=== PATIENT | female | born 1940 | race Caucasian/White ===

== ENCOUNTER → 2022-10-09 13:16 | Outpatient (CLI) | payer OTHER, SELFPAY ==
--- NOTE | 2022-10-09 14:44 | DI.MRI.S_ITS ---
PROCEDURE: MR LUMBAR SPINE WO CON INDICATIONS: spinal stenosis, lumbar region TECHNIQUE: Noncontrast sagittal T1 spin echo and T2 fast echo, sagittal STIR, and T2 fast spin echo through the lumbar spine. In cases with scoliosis, additional coronal T2 fast spin echo may be performed. COMPARISON: [facility] Outside Film, CT, CT LUMBAR SPINE WITHOUT CONTRAST, 07/03/2022, 17:10. FINDINGS: Image quality: Excellent. Alignment and Curvature: Mild retrolisthesis of L1 on L2 and of L2 on L3 and of L4 on L5. Bone Marrow: Marrow is of normal overall signal. No acute vertebral body compression fractures. Old moderate L1 compression. Spinal Cord: Conus medullaris terminates at the L1-L2 level. Visualized cord demonstrates normal signal and size. Paraspinous Soft Tissues: No paravertebral masses. T12-L1: Disc bulge. Facet hypertrophy. No canal stenosis or foraminal stenosis. L1-L2: Posterior disc post osteophyte. Facet hypertrophy. Mild canal stenosis. Moderate bilateral foraminal stenosis. L2-L3: Posterior disc post osteophyte. Facet hypertrophy. Moderate canal stenosis. Pvhf-yl-dyurtfbj bilateral foraminal stenosis. L3-L4: At the level of the disc space, there is large diffuse disc bulge and facet and ligament hypertrophy with severe canal stenosis. Just inferior to the disc space is a large extruded left paracentral disc fragment, measuring approximately 1.0 x 1.8 x 1.3 cm resulting in high-grade stenosis at the level of upper L4. There is moderate to severe right foraminal narrowing and severe left foraminal narrowing with bilateral foraminal L3 nerve root impingement. L4-L5: Posterior disc post osteophyte. Facet hypertrophy. Htxm-jv-euwsgfok canal stenosis. Severe bilateral foraminal stenosis with bilateral foraminal L4 nerve root impingement. L5-S1: Bilateral facet hypertrophy. No canal stenosis. Moderate to severe bilateral foraminal narrowing with a degree of bilateral foraminal L5 nerve root impingement. IMPRESSION: 1. The most significant findings are at L3-L4. At the level of did disc, there is severe canal stenosis. Just below the disc is a large extruded disc fragment which results in high-grade stenosis immediately below the disc level. There is also bilateral foraminal L3 nerve root impingement. 2. Multilevel facet arthropathy. 3. Canal stenosis is mild at L1-L2, moderate at L2-L3, and acvy-ow-eaymdcxd at L4-L5. 4. Significant multilevel foraminal narrowing as described above. Findings include moderate to severe right foraminal narrowing and severe left foraminal narrowing at L3-L4, bilateral severe foraminal narrowing at L4-L5, and bilateral moderate to severe foraminal narrowing at L5-S1. Dictated by: Duglas Dave M.D. on 10/10/2022 at 12:54 Approved by: Duglas Dave M.D. on 10/10/2022 at 13:01
== END ==
PROVIDERS: Referring Provider Physical Medicine & Rehabilitation; Visit Provider Physical Medicine & Rehabilitation
DX: M48.062 Spinal stenosis, lumbar region with neurogenic claudication (principal); M48.07 Spinal stenosis, lumbosacral region; M47.816 Spondylosis without myelopathy or radiculopathy, lumbar region; M47.817 Spondylosis without myelopathy or radiculopathy, lumbosacral region
CPT/HCPCS: 72148

== ENCOUNTER → 2022-11-23 10:12 | Outpatient (CLI) | payer OTHER, SELFPAY ==
[2022-11-23 12:09] LABS: Add Manual Diff / Slide Review NO; Basophils Absolute Auto 0 /uL (0-100); Basophils Percent Auto 0.5 % (0-2); Eosinophils Absolute Auto 0 /uL (0-450); Eosinophils Percent Auto 0.1 % (2-4); Hematocrit 37.9 % (36-46); Lymphocytes Absolute Auto 1900 /uL (1100-4500); Mean Corpuscular HGB Conc 34.2 % (30-36); Mean Corpuscular Hemoglobin 32.2 PG (26-34); Mean Corpuscular Volume 93.9 fL (80-100); Monocytes Absolute Auto 500 /uL (0-900); Monocytes Percent Auto 6.7 % (3-14); Neutrophils Absolute Auto 4900 /uL (1500-7000); Neutrophils Percent Auto 66.7 % (50-75); Platelet Count 239 X10^3/uL (150-400); Red Blood Cell Count 4.03 X10^6/uL (4.0-5.2); White Blood Cell Count 7.4 X10^3/uL (4.5-11.0)
[2022-11-23 12:16] LABS: BUN Creatinine Ratio 15.6 (6-22); Blood Urea Nitrogen 12 mg/dL (7-17); Calcium 9.1 mg/dL (8.4-10.2); Carbon Dioxide 31 mmol/L (22-32); Chloride 105 mmol/L (98-107); Estimated Glomerular Filt Rate > 60 mL/min (>60); Glucose 84 mg/dL (80-110); HEMOLYSIS < 15 (0-50); Potassium 3.8 mmol/L (3.4-5.1); Sodium 142 mmol/L (137-145)
[2022-11-24 02:57] LABS: Labcorp Hemoglobin (Hb) A1c 5.5 % (4.8-5.6)
== END ==
PROVIDERS: PCP Physician Assistant; Referring Provider Orthopaedic Surgery Orthopaedic Surgery of the Spine; Visit Provider Orthopaedic Surgery Orthopaedic Surgery of the Spine
DX: Z01.818 Encounter for other preprocedural examination (principal); R73.9 Hyperglycemia, unspecified; Z01.812 Encounter for preprocedural laboratory examination
CPT/HCPCS: 36415; 80048; 83036; 85025; 93005

== ENCOUNTER → 2022-11-23 11:10 | Outpatient (CLI) | payer OTHER, MEDICAID, SELFPAY ==
--- NOTE | 2022-11-23 | DI.CT.S_ITS ---
PROCEDURE: CT LUMBAR SPINE WO CON INDICATIONS: Spinal stenosis, lumbar region with neurogenic cla TECHNIQUE: Noncontrast 3 mm thick sections acquired from the T12 level to the sacrum. Sagittal and coronal reformats were constructed. For radiation dose reduction, the following was used: automated exposure control. COMPARISON: [facility] Outside Film, CT, CT LUMBAR SPINE WITHOUT CONTRAST, 07/03/2022, 17:10 (images only, no report). [facility], MR, MR LUMBAR SPINE WO CON, 10/09/2022, 14:08. [facility], RF, LUMBAR SPINE INTERIAMINAR, 08/30/2022, 9:48. FINDINGS: Image quality: This examination is limited by involuntary motion artifact. Bones: No acute vertebral body compression fractures. No suspicious lytic or blastic bony lesions. No pars defects. There is focal kyphosis seen at the L1-L2 level. Mild retrolisthesis can be seen at L1-L2, L2-L3, and L3-L4. Minimal retrolisthesis can be seen at L4-L5. T12-L1: The disc height is relatively well preserved. Mild generalized disc bulge is seen. No neural foraminal narrowing is seen. No significant central canal narrowing. L1-L2: Moderate to severe loss of disc height is seen on the right side. Endplate irregularity and sclerosis can be seen. Partially bridging endplate osteophytes can be seen. Posteriorly projected endplate osteophytes are seen. Moderate disc bulge is seen at this level. There is severe bilateral neural foraminal narrowing. Moderate to severe central canal narrowing is seen. L2-L3: Moderate to severe loss disc height is seen. Endplate irregularity and sclerosis can be seen. Moderate generalized disc bulge is seen. Moderate bilateral neural foraminal narrowing is seen. Moderate central canal narrowing is seen. L3-L4: Moderate to severe loss disc height is seen. Vacuum disc phenomenon is seen at this level. Endplate irregularity and sclerosis can be seen. There is again seen a disc extrusion with inferior migration of the disc material, as seen on series 8 image 31, with the extruded disc material measuring 1.6 cm craniocaudal. Moderate disc bulge is seen. Moderate to severe bilateral neural foraminal narrowing can be seen. There is severe central canal narrowing seen posterior to the L4 vertebral body, as on series 5, image 56. L4-L5: At least moderate loss of disc height is seen. Moderate disc bulge is seen, which is eccentric to the right. Endplate irregularity and sclerosis can be seen. There is moderate to severe right-sided and at least moderate left-sided neural foraminal narrowing. At least moderate central canal narrowing is seen at this level. L5-S1: The disc height is relatively well preserved. Mild disc bulge is seen, with a mild central disc protrusion. Mild to moderate facet hypertrophy is seen. Moderate bilateral neural foraminal narrowing is seen. Soft tissues: No retroperitoneal masses or hematomas. Dense atherosclerotic calcification is noted. Aortic irregularity is seen. There is luminal stenosis seen distally, with 40-50% narrowing seen within the distal aorta. Cholecystectomy clips are seen. IMPRESSION: Multiple levels of lumbar spine degenerative change are seen, with a persistent disc extrusion seen at the L3-L4 level, with the extruded disc material seen posterior to the L4 disc level. Associated severe central canal narrowing is seen. There is dense atherosclerotic calcification, with 40-50% narrowing seen involving the distal aorta. If clinically appropriate, a follow-up dedicated CT angiogram of the aorta could be considered further evaluation. Additional findings: Cholecystectomy clips Dictated by: Samson Hess M.D. on 11/23/2022 at 16:04 Approved by: Samson Hess M.D. on 11/23/2022 at 16:13
== END ==
PROVIDERS: PCP Physician Assistant; Referring Provider Orthopaedic Surgery Orthopaedic Surgery of the Spine; Visit Provider Orthopaedic Surgery Orthopaedic Surgery of the Spine
DX: M48.062 Spinal stenosis, lumbar region with neurogenic claudication (principal); M48.07 Spinal stenosis, lumbosacral region; M47.816 Spondylosis without myelopathy or radiculopathy, lumbar region; M47.817 Spondylosis without myelopathy or radiculopathy, lumbosacral region; M51.26 Other intervertebral disc displacement, lumbar region; I70.0 Atherosclerosis of aorta; Z01.818 Encounter for other preprocedural examination; Z01.812 Encounter for preprocedural laboratory examination; R73.9 Hyperglycemia, unspecified
CPT/HCPCS: 36415; 72131; 80048; 83036; 85025; 93005

== ENCOUNTER 2022-12-02 10:05 | Inpatient (IN) | payer OTHER, MEDICAID, SELFPAY ==
[2022-11-24 13:31] VITALS: BMI 23.1
[2022-12-02] VITALS (14 sets, daily range): BP systolic 115–174; BP diastolic 53–112; PULSE 78–94; RESP 12–20; TEMP 36.1–37; O2SAT 88–99; BMI 23.1
--- NOTE | 2022-12-02 | DI.RAD.S_ITS ---
PROCEDURE: XR LUMBAR SPINE 2-3V INDICATIONS: L3-4 L4-5 TLIF TECHNIQUE: Two views of the lumbar spine were acquired. COMPARISON: None. FINDINGS: Bones: fluoroscopic views of the lumbar spine demonstrating L3-L4 and L4-5 TLIF. The hardware appears intact. IMPRESSION: Fluoroscopic views of the lumbar spine status post L3-L4 and L4-L5 TLIF. Dictated by: Rich Grajeda M.D. on 12/02/2022 at 17:57 Approved by: Rich Grajeda M.D. on 12/02/2022 at 17:58
[2022-12-02] MEDS: ALBUTEROL/IPRATROPIUM 3 ML AMPUL INH ×2 (12:05→17:49)
--- NOTE | 2022-12-02 12:49 | PM.PREOP ---
Pre-operative Note COVID-19 Criteria for continued procedure: Expected advancement of disease process, Possibility delay results in more complex future surgery or treatment, Increased loss of function, Continuing or worsening of significant or severe pain, Deterioration of the patient's condition or overall health and Delay expected to result in less-positive ultimate med/surg outcome Interval Note History & Physical reviewed/Exam performed by Physician: Yes Changes to H&P: No
[2022-12-02] MEDS: LACTATED RINGERS 1,000 ML 42 ML IV ×3 (13:00→18:16)
--- NOTE | 2022-12-02 13:29 | PM.OP.1 ---
Operative Date/Time/Diagnoses Date of procedure: 12/02/22 Time of procedure: 13:45 Pre-op diagnosis: 1. L3-4, L4-5 spinal stenosis with neurogenic claudication 2. L3-4, L4-5 spondylosis with radiculopathy 3. Lumbar scoliosis Post-op diagnosis: same Procedure & Clinicians Procedure: 1. L3-4, L4-5 Postero-lateral and posterior interbody fusion 2. L3-4, L4-5 interbody cage placement. 3. L3-4, L4-5 decompressive laminectomy with bilateral facetecomies 4. L3-4, L4-5 Posterior segmental instrumentation 5. [place] of bone marrow from iliac crest 6. Utilization of microsurgical technique and operating microscope 7. Utilization of robotic assisted navigation Same procedure as scheduled: Yes Indications: Patient has been having chronic back pain and worsening lumbar radiculopathy and symptoms of neurogenic claudication. Patient failed multiple conservative management with worsening pain weakness and numbness in her lower extremity. Patient has been having difficulty performing activity of daily living. After discussing risks benefits of treatment options, patient elected proceed with surgery. Surgeon: Mariza Do Air Pumper: Ady Palmer Click Yes if Unassisted: No Anesthesia Type: General Operative Notes Closure Type: primary Specimen(s): none sent Prosthetic devices, grafts, tissues, transplants, or devices: Globus CREO MIS screws, Rise cages Applied: catheter Procedure in detail: Patient was seen in the preoperative area. Risks and benefits of the surgery was discussed with the patient. Informed consent was obtained from the patient and placed in the chart. Surgical site was marked. Patient was taken to the operative room. General anesthesia was administered. Prophylactic antibiotic was given to the patient less than 30 min before the incision was made. Patient was placed into a prone position on the Alex table. Patient's back was then prepped and draped in the sterile fashion. Time-out was performed at this time. After patient was prepped and draped, patient's PSIS was palpated and marked bilaterally. Small 1 cm incision was made over the PSIS for placement of the reference probes. Two trocar was placed into the PSIS 1 on each side. The reference probe was attached to the trocar of the reference apparatus. At this time the C-arm imaging was used to confirm AP and lateral of L3, L4-L5 vertebrae and merged the C-arm imaging using the [employer] robotic navigation system with the CT of the lumbar spine. After successful merging was completed and confirmed, skin marker was used to aleks out the skin incision using the [employer] robotic arm. Bilateral incision was made at this time. Pre templated trajectory was used and guided using the [employer] robotic navigation system for bilateral L3 L4, L5 pedicle screw placement. This was done by using the robotic arm to guide the high-speed bur to make a cortical entry point. Next a drill was placed also using the robotic arm and guided using the navigation system drilling partially through bilateral L3, L4, L5 pedicles. Next L3, L4, L5 pedicle screws it was pre templated and measured was placed onto the power industrial tractor driver and inserted into the pedicles bilaterally. After all 6 screws were placed C-arm imaging was taken of both AP and lateral to confirm the placement. Excellent placement of the screws were confirmed and a matched precisely with the pre planned screw placement using the navigation system. MARs retractor was inserted using [employer] guidence. Globus MARS retractors was placed inside the incision and docked onto the L3, L4 lamina. Using microsurgical technique and operating microscope, a L3, L4 laminectomy and L3-4, L4-5 facetectomy was performed using a Kerrison rongeur. The laminectomy and facetectomy was performed in order to decompress patient's cauda equina as well as the nerve roots exiting at the L3-4, L4-5 level. Patient was found have severe central stenosis, severe lateral recess and neural foramen stenosis which was fully decompressed after the laminectomy facetectomy. More than 75% of the facets were removed during the process of decompression rendering L3-4, L4-5 level grossly unstable and required a fusion procedure at the same time. The disc space at L3-4, L4-5 was identified, and a total diskectomy was performed at L3-4, L4-5 level. The endplates were decorticated using a rasp and shaver. The total diskectomy and decortication was performed at L3-4, L4-5 level in order to to accomplish a L3-4, L4-5 fusion. The local bone from the laminectomy and facetectomy was saved for local bone grafting. After the total diskectomy and decortication was completed, Trifecta bone graft material was combined with local bone that was harvested earlier. At this time, a separate skin is incision was made over the iliac crest. A Jamshidi needle was inserted into the iliac crest through a separate skin incision. 5 cc of bone marrow aspiration was obtained through the separate skin incision using a Jamshidi needle from the iliac crest. The bone marrow aspiration was combined with local bone and the Trifecta bone grafting material. The bone grafting material was placed into the L3-4, L4-5 interbody space along with expandable cages. One cage each was inserted into the L3-4 L4-5 interbody space along with bone graft material. The cage was expanded to its maximum height using the torque limiting screwdriver. The disc preparation as well as the cage insertion were also performed under navigation guidance. After the cage was placed, AP and lateral C-arm imaging was taken to confirm placement of the cage and excellent position was confirmed. Globus MARS retractor was inserted and docked onto the L3-4, L4-5 posterolateral gutter on the right side. Using the power drill, posterior-lateral decortication was performed at L3-4, L4-5 level until bleeding cortical bone was identified. The remaining bone grafting material was placed into the L3-4, L4-5 posterior lateral gutter he order to accomplish posterolateral fusion at the L3-4, L4-5 level. At this time the tulips were attached to the L3, L4-L5 pedicle screw shanks. After measuring the length of the rods, they were inserted into the tulips of the pedicle screws and locked in place using locking caps and torque limiting screwdriver bilaterally. Total 6 caps and 2 titanium rods was used in order to complete the posterior instrumentation construct. After all the hardware was placed, and confirmed with AP and lateral C-arm imaging, the wound was then irrigated with sterile normal saline and packed with Ray-Adriel gauze for 3 min to accomplish hemostasis. After the gauze was removed the deep fascia was closed with #1 Vicryl suture. The subcutaneous layer was closed with 2-0 Vicryl. The skin was closed with skin kaitlynn. Patient tolerated the procedure well. There were no complications. Neuro monitoring system was used to monitor patient's neurologic status throughout entire procedure. There was no disturbance of the neural monitoring signals throughout the case. The Operation could not have been safely performed without compromising the technical result or length of the procedure, without the assistance of a skilled kindergarten assistant. The kindergarten assistant was medically necessary for proper positioning, retraction and manipulation of instruments, proper exposure, surgical preparation, and manipulation of tissue. Complications: none Post-operative Condition: stable Disposition: PACU Plan for aftercare: Admit to inpatient hospital
[2022-12-02] MEDS: CEFAZOLIN 2 GM/100 ML PREMIX 100 ML IV ×2 (14:06→22:01)
--- NOTE | 2022-12-02 14:15 | SUR.OPER ---
Prone on spine table, head in foam head support, padded chest and pelvic supports, gel pad at knees, lower legs supported by pillows; nipples, genitalia and toes free of pressure, arms secured on foam padded arm boards at <90 degrees abduction. Tape over blanket at thigh secured to table.
[2022-12-02] MEDS: BUPIVACAINE 0.25% (PF) 30 ML, EPINEPHrine 0.15 MG INJ (14:19)
[2022-12-02] MEDS: BUPIVACAINE LIPOSOME 266 MG/20 ML VIAL INJ (14:19)
[2022-12-02] MEDS: LACTATED RINGERS 1,000 ML 1000 ML IV (15:00)
[2022-12-02] MEDS: HYDROMORPHONE 2 MG INJ IV ×3 (17:38→17:57)
[2022-12-02] MEDS: ONDANSETRON 4 MG/2 ML INJ IV (17:40)
[2022-12-02] MEDS: fentaNYL 100 MCG/2 ML INJ IV ×2 (17:41→17:42)
[2022-12-02] MEDS: hydrOXYzine 50 MG/ML INJ 25 MG IM (17:45)
[2022-12-02] MEDS: LORazepam 2 MG/ML INJ 0.25 MG IV (17:56)
[2022-12-02] MEDS: OXYCODONE IR 5 MG TABLET PO (18:09)
[2022-12-02] MEDS: LACTATED RINGERS 1,000 ML 125 ML IV (18:50)
[2022-12-02] MEDS: GABAPENTIN 300 MG CAPSULE PO (22:00)
[2022-12-02] MEDS: SENNOSIDES 8.6 MG TABLET 17.2 MG PO (22:00)
[2022-12-02] MEDS: PREGABALIN 75 MG CAPSULE PO (22:00)
[2022-12-02] MEDS: DOCUSATE 100 MG CAPSULE PO (22:00)
[2022-12-02] MEDS: HYDROMORPHONE 0.5 MG INJ IV (22:01)
[2022-12-02] MEDS: hydrOXYzine pamoate 25 MG CAPSULE PO (22:01)
[2022-12-03] VITALS (8 sets, daily range): BP systolic 122–144; BP diastolic 43–61; PULSE 68–86; RESP 17–22; TEMP 36.3–36.8; O2SAT 88–96
[2022-12-03] MEDS: ACETAMINOPHEN 325 MG TABLET 650 MG PO ×4 (00:09→23:26)
[2022-12-03] MEDS: OXYCODONE IR 10 MG TABLET PO ×4 (00:10→23:26)
[2022-12-03] MEDS: HYDROMORPHONE 0.5 MG INJ IV (00:50)
--- NOTE | 2022-12-03 04:27 | PC.ADMIT ---
[address] Admission Note: Patient admitted to AC unit from PACU prior to my arrival. A/O x 3-4, cooperative with care. Pain managed by PRN's- (see MAR), ice pack, and repositioning. Dressing to back dry and intact, noted some blood on dressing. CMS intact. Bed in low position, alarm on, and call light within reach. The patient,Onelia Jarvis,82 y/o, was given written information regarding hospital policies, unit procedures and contact persons. Patient's smoking status: Current every day smoker. Vital Signs - 8 hr 12/02/22 22:00 12/02/22 22:00 Temperature 97.0 F L Pulse Rate 79 Respiratory Rate 20 Blood Pressure 120/64 Pulse Oximetry 92 Oxygen Delivery Method Nasal Cannula Oxygen Flow Rate 5
[2022-12-03] MEDS: CEFAZOLIN 2 GM/100 ML PREMIX 100 ML IV (06:01)
[2022-12-03 08:39] LABS: Hematocrit 31.8 % (36-46); Hemoglobin 10.8 g/dL (12.0-16.0)
[2022-12-03] MEDS: PREGABALIN 75 MG CAPSULE PO ×2 (08:57→20:16)
[2022-12-03] MEDS: AMLODIPINE 5 MG TABLET PO (08:57)
[2022-12-03] MEDS: NICOTINE 14 PATCH 14 MG TOP (08:57)
[2022-12-03] MEDS: GABAPENTIN 300 MG CAPSULE PO ×3 (08:57→20:16)
[2022-12-03] MEDS: lisinopriL 10 MG TABLET PO (08:57)
[2022-12-03] MEDS: polyethylene glycoL 3350 17 GM POWD.PACK PO (08:57)
[2022-12-03] MEDS: DOCUSATE 100 MG CAPSULE PO ×2 (08:58→20:16)
--- NOTE | 2022-12-03 09:29 | CM.DANOTE ---
Addendum entered by Chela Lizarraga R.N. 12/03/22 13:23: Patient will discharge to daughter's home when she is medically cleared. GERTRUDE Original Note: Initial Discharge Assessment Note: Case reviewed, met with patient. Introduced self and role. Payer: [employer] Advantage and self pay PCP: Kierra Joseph 82 year old underwent lumbar TLIF yesterday by Dr Do. She lives alone in [place] in an apartment with 14 stairs. She has family in [place] who help as needed. She uses public transportation and family as needed. PT Eval pending. PLAN: Follow for discharge planning needs. Discharge home when medically cleared. GERTRUDE Discharge Planning/Care Management CM Discharge Assessment Start: 12/03/22 09:27 Freq: Status: Active Protocol: Document 12/03/22 09:27 SJ (Rec: 12/03/22 09:29 [id number]) Discharge Planning Assessment Assigned Door Assembler Trang Lizarraga RN/DCP Advance Directives? No History Provided By Patient,Medical Record Prior Living Arrangements Apartment/Condo Household Members none Comment Local family help her as needed Type of transporation used prior to Relies on Others admit Comment Able to drive but has no car. Uses public transportation Independent with ADL's Yes Is patient alert and oriented? Yes Needs Assistance With Home Chores / Shopping Caregiver for Another No DME Already Rented / Owned Bath Bench,FWW / Walker,Cane Barriers to Discharge No Discharge Plan Home Referrals Initiated None needed Review Status In Process Next Review Type Continued Stay Review Pre-Anesthesia Assessment Start: 11/24/22 10:44 Freq: Status: Complete Protocol: Document 11/24/22 13:31 TC (Rec: 11/24/22 10:45 TC [id number]) Pre-Anesthesia Assessment Preferred Name Onelia Patient Information Reviewed Via Phone Assessment Assessment Completed With Patient Diagnostic Results BMP/CMP,CBC Comment 11/23/22 Primary Care Provider Kierra Joseph Medical Clearance Received Not Applicable Seen Specialist in Last 12 Months Yes Specialist Seen Orthopedist Primary Language Surinamese Preferred Language Surinamese Grain Broker Required No Height 162.56 cm Weight 61.235 kg Body Mass Index (BMI) 23.1 Hearing Ability Normal Visual Impairment Partially Limited Visual Assist Glasses Dentition Type Full- Lower,Full- Upper Barriers to Learning None Other Aids No Hx Anesthesia Reactions No Hx Family Anesthesia Reaction No Hx Malignant Hyperthermia No Hx Blood Transfusions No Hx Blood Transfusion Reaction No Anesthesia Review Requested No Pipefitter No alcohol intake never Smoking Status Current every day smoker Tobacco type cigarettes Smoking packs per day 1 Substance Use Type does not use Pain Present Pain Reported Musculoskeletal Symptoms Back Pain,Muscle Cramps, Radiating Pain into Limb History of Falling (Recent or History of No ) Patient is completely paralyzed or No completely immobile Ambulatory Aid Crutches/cane/walker Mental Status Oriented to own ability Is patient on oxygen? No Does patient have SCHAEFER/SOB No Hx Sleep Apnea No CPAP/BIPAP use not prescribed Currently Taking a Beta Brian No Can You Climb a Flight of Stairs Without No: due to legs and back not SOB because of lungs Hx Chest Pain No Hx SOB No Hx Syncope or Dizziness No Anti-Coagulant Therapy No Has a Petroleum Production Engineer No Cardiac Testing Yes: EKG 11/24/22 Hx Pacemaker/ICD No Pacemaker Rep Required? No Cardiac Clearance Received Not Applicable Diet Type At Home Regular Diabetes No Patient No Lactating No Hx Drug Resistant Organism No Presence of External or Internal Medical No Devices Have you had any close contact with No someone diagnosed with COVID-19? Are you experiencing any of these No symptoms symptoms? Evaluation/Screening for possible COVID- Yes 19 infection completed? Received a COVID vaccine? Yes Received all doses? Yes Marital Status Lives With none Current Living Arrangements Apartment/Condo Comment patient is on second floor- no elevator Number of Floors (Floors) Two Floors Number of Stairs To Enter/Railing? 14 Comment patient plans to stay with dtr after surgery, 1 level Does the Patient Have Assistance After Yes Surgery Patient Discharge Plan Description Return Home Feels Safe in Current Environment Yes Been Physically Hurt or Threatened By a No Person in Current Environment If Yes, Provider Notified No Do you have thoughts of harming yourself None or others? Are you currently considering suicide? No Do you have a plan to hurt yourself or No Plan others? If Yes, Provider Notified No Do You Have Any Spiritual Beliefs That No May Affect Your HC Choices? Do You Have Any Cultural Practices That No May Affect Your HC Choices? Comment judaism Who Can We Speak to About Patient's Care friends and family Identifying Code for Release of Patient declines to issue Information Health Care Proxy/Next of Kin Edilma rendon dtr in law Health Care Proxy Emergency Contact Name Edilma rendon dtr in law Emergency Contact Advance Directives? No Requested Patient Bring Advanced Not Applicable Directives DOS Power of Printing Supplies Sales Representative No PAC Instructions Assistance for 24 hours post- op,Bring CPAP/BIPAP,Diabetes instructions,Do not shave/clip surgical site,Durable medical equipment,Medications to take /avoid,Nasal antibiotic,No ETOH/petroleum product on skin DOS,NPO,Pre-surgical wash, Sensory aids,Sturdy shoes/ comfortable clothes,Do not bring valuables and remove jewelry
--- NOTE | 2022-12-03 10:32 | PM.PNPO.1 ---
Subjective Subjective Date Patient Seen: 12/03/22 Time Patient Seen: 10:32 Interval history: Patient states her pain is mild. Significant decrease in pain in her legs status post surgery. No fever or chills. No nausea or vomiting. Exam Vital Signs (past 8 hours): - 12/03/22 07:27 12/03/22 08:00 Temperature 98.0 F Pulse Rate 68 83 Respiratory Rate 17 Blood Pressure 122/53 L Pulse Oximetry 93 96 Oxygen Delivery Method Nasal Cannula Oxygen Flow Rate 3 4 Fraction of Inspired Oxygen 32 Fraction of Inspired Oxygen 32 SaO2/FiO2 Ratio 290 Oxygen Delivery Method Nasal Cannula Oxygen Flow Rate 4 Narrative Exam Narrative: 82-year-old female resting comfortably in bed in no apparent distress. Motor functions intact bilateral lower extremities. Sensation grossly intact to light touch lower extremities Const General: cooperative and comfortable Nutritional Appearance: average body habitus Orientation: alert Resp Effort & Inspection: normal respiratory effort and able to speak in complete sentences Objective Labs 12/03/22 08:20 Labs: Laboratory Results - last 24 hr 12/03/22 08:20 Hgb 10.8 L Hct 31.8 L PFSH Medical History Arthritis Degenerative joint disease HTN (hypertension) Spinal stenosis Tobacco dependence Surgical History H/O arthroscopic knee surgery H/O knee surgery History of appendectomy History of breast biopsy History of cholecystectomy History of tonsillectomy Status post epidural steroid injection Social History household members: none Smoking Status: Current every day smoker alcohol intake: never Assessment & Plan Post-op Postoperative Procedures: Procedures Operation Date: 12/02/22 12:45 Actual Procedure Side Surgeon p L3-4, L4-5 TLIF w. posterior instrumentation -Robot Mariza Do MD Postoperative day: 1 Postoperative status narrative: Stable status post L3-L4, L4-L5 fusion Postoperative plan narrative: Mobilize with physical therapy, limit bending, twisting, lifting Multimodal pain management Disposition, group home facility versus home with son and nffsjplh-[id number] in 1-2 days Quality VTE Deep Vein Thrombosis/Pulmonary Embolism Present on Admission: No
--- NOTE | 2022-12-03 11:44 | PT.IIE ---
Current Diagnoses Spondylolisthesis, lumbar region (12/02/22) Spinal stenosis, lumbar region with neurogenic claudication (12/02/22) Surgery Performed Operation Date: 12/02/22 12:45 Actual Procedures p L3-4, L4-5 TLIF w. posterior instrumentation -Robot - Mariza Do MD Surgical History (Last Reviewed 12/03/22 @ 10:33 by Ady Palmer PA-C) H/O arthroscopic knee surgery H/O knee surgery History of appendectomy History of breast biopsy History of cholecystectomy History of tonsillectomy Status post epidural steroid injection Medical History (Last Reviewed 12/03/22 @ 10:33 by Ady Palmer PA-C) Arthritis Degenerative joint disease HTN (hypertension) Spinal stenosis Tobacco dependence Physical Therapy Inpatient Evaluation/Re-Eval M1 PT/OT-IP Prior Functional Status Start: 12/03/22 13:33 Freq: NEEDED Status: Active Protocol: Document 12/03/22 11:44 AB (Rec: 12/03/22 13:52 AB [id number]) Medical Review Prior Functional Status Medical History Reviewed Yes Communication able to make needs known; with slight confusion and with difficutly following directions Mobility and Gait pt stated that she was modified independent with mobility but has been using and switching from a SPC, FWW, 4WW for ambulation for the last 5 months due to back pain . able to ambulate without AD prior to that Social History Household Members none Living Arrangements House Number of Floors (Floors) One Floor Number of Stairs To Enter/Railing? pt plans to go to her son/CINTHYA house upon d/c and home info provided is regarding daughter 's home set up 2 platform steps to enter Home Environment Standard Height Toilet,Tub/ Shower Home Equipment Front Wheel Walker,Four Wheel Walker,Straight Cane,Tub Transfer Bench,Hand Held Shower Additional Social History Comment pt will go to her son/CINTHYA's house M2 PT-IP Current Condition Start: 12/03/22 13:33 Freq: NEEDED Status: Active Protocol: Document 12/03/22 11:44 AB (Rec: 12/03/22 13:52 AB [email or web address]) Physical Therapy Current Condition Current Condition Evaluation Date 12/03/22 Treatment Diagnosis s/p L3-4, L4-5 TLIF; difficulty in walking Onset Date 12/02/22 M3 PT-IP Subjective Start: 12/03/22 13:33 Freq: NEEDED Status: Active Protocol: Document 12/03/22 11:44 AB (Rec: 12/03/22 13:52 AB [email or web address]) Subjective Physical Therapy Visit Type Type Initial Evaluation Visit Start Time 11:44 Visit Stop Time 12:30 Total Visit Minutes 46 Number of PBX INSTALLER Visits 0 Physical Therapy Visit Comments Patient Comments agreed to do PT Therapy Pain Assessment Pain When Pain Assessed During Mobility Location Back Scale Used pain scale not stated Pain Behaviors Guarding Pain Management Techniques Distraction,Modification of Treatment,Re-positioning, Timing of Activity with Medications M4 PT-IP Mobility and Gait Start: 12/03/22 13:33 Freq: NEEDED Status: Active Protocol: Document 12/03/22 11:44 AB (Rec: 12/03/22 13:52 AB [email or web address]) PT-Bed Mobility Assessment Rolling Type of Rolling Log Rolling Level of Assist Maximal Assistance Supine to Sit Supine to Sit Maximum Assistance PT-Transfer Assessment Sit to and From Stand Sit to and from Stand Maximum Assistance,1 Person Assistance,Use of Upper Extremities Equipment Transfer Assistive Device Gait Belt,Front Wheeled Walker Orthotic/Prosthetic Devices or Brace: No Transfers Transfer Destination Chair Transfer Technique ambulated Transfer Ability Level of Assist Maximum Assistance,1 Person Assistance,Use of Upper Extremities Comments Mobility Comments pt supine in bed. BP: 137/66 O2 sat with O2 on: 90-91% at 1L/min. educated on back precautions and log roll bed mobility. completed supine to sit log roll max A and max cues. O2 sat checked and decreased to 87%. O2 increased to 2L/min and O2 sat increased to 94%. pt is impulsive and has difficulty following directions. completed sit to stand from EOB max A and max cues. max A for standing balance with increase posterior trunk lean. cued pt to use FWW for support and to increase awareness of her center. pt with difficulty following directions and can be impulsive. initiated ambulation with (+) knee buckling R>L requiring max A and max cues. ambulated to the chair using FWW max A and max cues and needed assist for R knee stabilization. agreed to sit up on the chair. positioned on the chair. call light and table placed within reach. O2 at end of PT session at 2L/min: 93%. set up pt for lunch. informed pt regarding current mobility and d/c plan. agreed for PT to call her DIL for caregiver training for tomorrow. call pt's son/DIL x2 attempts but unsuccessful. mail box is full and unable to leave a message. Gait Assessment Gait Gait Assistance Required: Maximum Assistance,1 Person Assist Distance (Feet) 10 Able to Maintain Weight Bearing Status Yes During Gait Assistive Devices Assistive Device Gait Belt,Front Wheeled Walker Gait Deviations General Gait Pattern Antalgic,Decreased Stride Length,Decreased Feet Clearance,Step-to Gait Factors Limiting Gait Function Factors Limiting Gait Function Decreased Activity Tolerance, Decreased Strength,Difficulty Following Directions, Incoordination,Limited Range of Motion,Pain,Poor Balance, Poor Safety Awareness PT-Balance Assessment Sitting Balance and Reactions Static Sitting Balance Ability Fair Dynamic Sitting Balance Ability Fair Standing Balance and Reactions Static Standing Balance Ability Poor Dynamic Standing Balance Ability Poor M5 PT-IP Objective Assessments Start: 12/03/22 13:33 Freq: NEEDED Status: Active Protocol: Document 12/03/22 11:44 AB (Rec: 12/03/22 13:52 AB [id number]) Orientation Orientation/Cognition Level of Alertness Alert Orientation Name,Place,Situation Language Function Ability No Deficits Noted Safety Awareness Decreased Safety Awareness Memory Description Short Term Impaired Comments with confusion Gross Range of Motion Lower Extremity ROM Assessment Within Functional Limits Strength Lower Extremity Strength Assessment Bilaterally Impaired Comments Strength Comments RLE: 4-/5 LLE: 3+/5 Sensation Assessment Sensation Gross Sensation WNL Muscle Tone Muscle Tone WNL Yes M6 PT-IP Treatment Start: 12/03/22 13:33 Freq: NEEDED Status: Active Protocol: Document 12/03/22 11:44 AB (Rec: 12/03/22 13:52 AB [email or web address]) Physical Therapy Treatment Education Education Provided Precautions,Weight Bearing Status,Post-Op Packet,Safety M7 PT-IP Assessment and Plan Start: 12/03/22 13:33 Freq: NEEDED Status: Active Protocol: Document 12/03/22 11:44 AB (Rec: 12/03/22 13:52 AB [email or web address]) PT Summary Assessment and Plan Potential Rehabilitation Potential Fair Status of Condition at Evaluation Evolving Summary Impairments Pain,ROM,Strength,Balance, Coordination,Sensation,Tone, Cognition,Bed Mobility, Transfers,Gait,Activity Tolerance Assessment Summary Pt with s/p L3-4, L4-5 TLIF POD1 and requiring max A with mobility and recommending 2 person assist with nursing staff and for transfers only at this time. pt with tendency to have B knee buckling R>L requiring max A for steadiness, knee stabilization and safety. pt has decrease safety awareness and is impulsive with difficulty following directions affecting mobility level. attempted to set up caregiver training and called pt's family but unsuccessful. pt at this time will need SNF rehab but will continue to assess progress for safe d/c plan. Goals Bed Mobility Goal Minimal Assistance Transfer Goal Minimal Assistance,Front Wheeled Walker Gait Goal Minimal Assistance,Front Wheel Walker Gait Distance 50 Other Goals improve bed mobility, transfers, ambulation using FWW SBA 150 ft 2 platform steps using FWW CGA Days to Meet Goals 10 Frequency of Treatment Frequency Of Treatment Twice a Day Treatment Plan Physical Therapy Treatment Plan Bed Mobility Training,Transfer Training,Gait Training, Therapeutic Exercise,Balance Retraining,Post Op Education, Discharge Planning,Hot or Cold Pack,Neuromuscular Re-ed, Coordination Retraining,Manual Therapy Precautions Lumbar Precautions Log Roll,No Twisting,Limit Bending,Lifting Restriction of 10 lbs,Gait Belt above Incisional Area Recommendations To Nursing Amount of Assist Needed 2 Person Assist Discharge Recommendations PT Discharge Recommendations Home with 24/ Assist Available,Home Health,SNF Rehab,Home vs SNF Transportation Needs at Discharge Private Vehicle,Wheelchair/ Cabulance
--- NOTE | 2022-12-03 14:36 | PT-IP ANOTE ---
Passed by pt's room and pt on the phone with her CINTHYA. talked to CINTHYA to set up caregiver trainin am for tomorrow.
--- NOTE | 2022-12-03 15:10 | PT.IPTN ---
Current Diagnoses Spondylolisthesis, lumbar region (12/02/22) Spinal stenosis, lumbar region with neurogenic claudication (12/02/22) Surgery Performed Operation Date: 12/02/22 12:45 Actual Procedures p L3-4, L4-5 TLIF w. posterior instrumentation -Robot - Mariza Do MD Physical Therapy Treatment Note M2 PT-IP Current Condition Start: 12/03/22 13:33 Freq: NEEDED Status: Active Protocol: Document 12/03/22 11:44 AB (Rec: 12/03/22 13:52 AB [email or web address]) Physical Therapy Current Condition Current Condition Evaluation Date 12/03/22 Treatment Diagnosis s/p L3-4, L4-5 TLIF; difficulty in walking Onset Date 12/02/22 M3 PT-IP Subjective Start: 12/03/22 13:33 Freq: NEEDED Status: Active Protocol: Document 12/03/22 16:00 TS (Rec: 12/03/22 16:18 TS [id number]) Subjective Physical Therapy Visit Type Type Treatment Note Visit Start Time 15:10 Visit Stop Time 15:30 Total Visit Minutes 20 Number of TRIAGE REGISTERED NURSE Visits 1 Physical Therapy Visit Comments Patient Comments Pt reports pain is better than what she had before the surgery, agreeable to PT. M4 PT-IP Mobility and Gait Start: 12/03/22 13:33 Freq: NEEDED Status: Active Protocol: Document 12/03/22 16:00 TS (Rec: 12/03/22 16:18 TS [id number]) PT-Bed Mobility Assessment Rolling Type of Rolling Log Rolling Level of Assist Minimal Assistance Supine to Sit Supine to Sit Moderate Assistance,1 Person Assistance Sit to Supine Sit to Supine Moderate Assistance,1 Person Assistance Scooting Scooting to Edge of Bed Contact Guard Assistance PT-Transfer Assessment Sit to and From Stand Sit to and from Stand Minimal Assistance,1 Person Assistance,Use of Upper Extremities Equipment Transfer Assistive Device Gait Belt,Front Wheeled Walker Orthotic/Prosthetic Devices or Brace: No Comments Mobility Comments Pt found resting on 2L of o2, Spo2 94%, pt recalled 1/3 spinal precautions prior to mobility(twisting). Logroll Daphney for on R side, provided cues for bringing hips and shoulders together. Supine to sit ModA for uprighting trunk, provided cues for LEs over EOB and BUE support pushing trunk upright. Sit to stand Daphney with FWW and BUE support on FWW, pt demonstrates good standing balance. Pt ambulated ~20' in room Min-ModA due to buckling of B LEs. Sit to supine back into bed ModA for LEs, provided cues for coming down onto elbow and shoulder. Pt was left in bed with call light nearby, all needs met, RN notified. Gait Assessment Gait Gait Assistance Required: Minimum Assistance,Moderate Assistance,1 Person Assist Distance (Feet) 20 Able to Maintain Weight Bearing Status Yes During Gait Assistive Devices Assistive Device Gait Belt,Front Wheeled Walker Orthotic/Prosthetic Devices or Brace: No Gait Deviations General Gait Pattern Antalgic,Decreased Stride Length,Decreased Feet Clearance,Step-to Gait Factors Limiting Gait Function Factors Limiting Gait Function Decreased Activity Tolerance, Decreased Strength,Difficulty Following Directions, Incoordination,Limited Range of Motion,Pain,Poor Balance, Poor Safety Awareness Comments Gait Comments See mobility comments. PT-Balance Assessment Sitting Balance and Reactions Static Sitting Balance Ability Fair Dynamic Sitting Balance Ability Fair Standing Balance and Reactions Static Standing Balance Ability Poor Dynamic Standing Balance Ability Poor M5 PT-IP Objective Assessments Start: 12/03/22 13:33 Freq: NEEDED Status: Active Protocol: Document 12/03/22 11:44 AB (Rec: 12/03/22 13:52 AB [id number]) Orientation Orientation/Cognition Level of Alertness Alert Orientation Name,Place,Situation Language Function Ability No Deficits Noted Safety Awareness Decreased Safety Awareness Memory Description Short Term Impaired Comments with confusion Gross Range of Motion Lower Extremity ROM Assessment Within Functional Limits Strength Lower Extremity Strength Assessment Bilaterally Impaired Comments Strength Comments RLE: 4-/5 LLE: 3+/5 Sensation Assessment Sensation Gross Sensation WNL Muscle Tone Muscle Tone WNL Yes M6 PT-IP Treatment Start: 12/03/22 13:33 Freq: NEEDED Status: Active Protocol: Document 12/03/22 16:00 TS (Rec: 12/03/22 16:18 TS [id number]) Physical Therapy Treatment Education Education Provided Precautions,Weight Bearing Status,Post-Op Packet,Safety M7 PT-IP Assessment and Plan Start: 12/03/22 13:33 Freq: NEEDED Status: Active Protocol: Document 12/03/22 16:00 TS (Rec: 12/03/22 16:18 TS [id number]) PT Summary Assessment and Plan Potential Rehabilitation Potential Fair Summary Impairments Pain,ROM,Strength,Balance, Coordination,Sensation,Tone, Cognition,Bed Mobility, Transfers,Gait,Activity Tolerance Progress Towards Goals Progressing Toward Goals Assessment Summary Pt made some progress with her mobility this session. She required decreased assist for logroll and demonstrated some carryover of sequencing, required cues for fully on R side. She progressed her gait to ~20' in room Min-ModA for balance, pt's LEs continue to buckle but has no LOB. She continues to be impulsive to move before therapist is ready but can follow single step instructions well. PT is continues to recommend SNF vs Home with 24/7 assist and HHPT . Goals Bed Mobility Goal Minimal Assistance Transfer Goal Minimal Assistance,Front Wheeled Walker Gait Goal Minimal Assistance,Front Wheel Walker Gait Distance 50 Other Goals improve bed mobility, transfers, ambulation using FWW SBA 150 ft 2 platform steps using FWW CGA Days to Meet Goals 10 Frequency of Treatment Frequency Of Treatment Twice a Day Treatment Plan Physical Therapy Treatment Plan Bed Mobility Training,Transfer Training,Gait Training, Therapeutic Exercise,Balance Retraining,Post Op Education, Discharge Planning,Hot or Cold Pack,Neuromuscular Re-ed, Coordination Retraining,Manual Therapy Precautions Lumbar Precautions Log Roll,No Twisting,Limit Bending,Lifting Restriction of 10 lbs,Gait Belt above Incisional Area Recommendations To Nursing Amount of Assist Needed 2 Person Assist Discharge Recommendations PT Discharge Recommendations Home with 24/7 Assist Available,Home Health,SNF Rehab,Home vs SNF Transportation Needs at Discharge Private Vehicle,Wheelchair/ Cabulance
[2022-12-03] MEDS: hydrOXYzine pamoate 25 MG CAPSULE PO (20:16)
[2022-12-03] MEDS: SENNOSIDES 8.6 MG TABLET 17.2 MG PO (20:16)
[2022-12-04] MEDS: OXYCODONE IR 5 MG TABLET PO ×4 (03:06→22:57)
[2022-12-04] MEDS: hydrOXYzine pamoate 25 MG CAPSULE PO (03:06)
[2022-12-04] MEDS: ACETAMINOPHEN 325 MG TABLET 650 MG PO ×2 (05:14→22:58)
[2022-12-04 06:48] VITALS: BP 130/49; PULSE 70; RESP 20; TEMP 36.5; O2SAT 93
--- NOTE | 2022-12-04 06:55 | PC.NURSE ---
Patient on 2L nasal canula -93%, desats to high 70's on RA while in bed. PRN's given per JUN. Flores removed at 0600, awaiting void.
[2022-12-04 07:42] VITALS: O2SAT 96
[2022-12-04] MEDS: PREGABALIN 75 MG CAPSULE PO ×2 (08:47→21:46)
[2022-12-04] MEDS: NICOTINE 14 PATCH 14 MG TOP (08:47)
[2022-12-04] MEDS: DOCUSATE 100 MG CAPSULE PO ×2 (08:47→21:46)
[2022-12-04] MEDS: GABAPENTIN 300 MG CAPSULE PO ×3 (08:48→21:47)
--- NOTE | 2022-12-04 10:45 | PM.PNPO.1 ---
Subjective Subjective Interval history: Patient doing very well this morning status post lumbar surgery. Is hoping to be able to go home today. Exam Vital Signs (past 8 hours): - 12/04/22 06:48 12/04/22 07:42 Temperature 97.7 F Pulse Rate 70 Respiratory Rate 20 Blood Pressure 130/49 L Pulse Oximetry 93 96 Oxygen Delivery Method Nasal Cannula Oxygen Flow Rate 2 Fraction of Inspired Oxygen 28 SaO2/FiO2 Ratio 332 Oxygen Delivery Method Nasal Cannula Oxygen Flow Rate 2 Narrative Exam Narrative: Patient's dressing is clean and dry. Positive dorsiflexion and plantar flexion of the toes and ankles. 5/5 strength in dorsiflexion and plantar flexion. Nontender to palpation to posterior calves. Objective Labs 12/03/22 08:20 PFSH Medical History Arthritis Degenerative joint disease HTN (hypertension) Spinal stenosis Tobacco dependence Surgical History H/O arthroscopic knee surgery H/O knee surgery History of appendectomy History of breast biopsy History of cholecystectomy History of tonsillectomy Status post epidural steroid injection Social History household members: none Smoking Status: Current every day smoker alcohol intake: never Assessment & Plan Post-op Postoperative Procedures: Procedures Operation Date: 12/02/22 12:45 Actual Procedure Side Surgeon p L3-4, L4-5 TLIF w. posterior instrumentation -Robot Mariza Do MD Postoperative day: 2 Postoperative status: doing well Postoperative plan: discharge Postoperative plan narrative: Patient doing well status post surgery. If patient does well with physical therapy we can work on getting her discharged home today. Quality VTE Deep Vein Thrombosis/Pulmonary Embolism Present on Admission: No
--- NOTE | 2022-12-04 12:37 | CM.DPC ---
DCP Continued: REFINERY OPERATOR HELPER reviewed EMR. Per nursing staff, patient is now wanting SNF due to feeling extremely weak today. Cannot work with PT due to no PT staff available today. REFINERY OPERATOR HELPER entered room and introduced self and role. Patient was laying in bed and appeared A/Ox4. Patient was accompanied by son Abdirizak and CINTHYA Colby ([phone]). CINTHYA reports that there was caregiver training scheduled for this am, but PT never came. Patient and DIL report wanting SNF now after seeing patient struggle with PT the previous day. Patient reports first preference is [facility]. CINTHYA had questions on how patient would get to her OP appointment on (12/12 or 12/24?) if patient went to [facility]. REFINERY OPERATOR HELPER sent initial referral information to [facility] (facesheet, H&P, PT notes, PNs, etc). Julieth reports she'll take a look at it and they have beds available. Plan: pending SNF acceptance/PT on Monday, patient will d/c to [facility] when medically stable. Patient may d/c home with family. Continue to follow closely. ROSAMARIA Hernandez
[2022-12-04 16:00] VITALS: BP 152/57; PULSE 107; RESP 17; TEMP 37.7; O2SAT 92
[2022-12-04] MEDS: MAGNESIUM HYDROXIDE 30 ML UDC PO (16:18)
[2022-12-04] MEDS: polyethylene glycoL 3350 17 GM POWD.PACK PO (16:18)
--- NOTE | 2022-12-04 19:32 | PC.NURSE ---
Event Note Patient's son and daughter in law assisted patient in transferring patient to bathroom without staff assist. Per family it was very difficult to transfer patient. Patient buckled during transfer and son had to almost carry mom into bathroom. This RN reminded patient family that they cannot transfer patient without staff due to risk of injury to patient, family and staff. Family agreeable to this. Bed alarm on and call light with in reach.
[2022-12-04 20:00] VITALS: BP 140/58; PULSE 95; RESP 18; TEMP 37.2; O2SAT 94
[2022-12-04] MEDS: SENNOSIDES 8.6 MG TABLET 17.2 MG PO (21:46)
[2022-12-04] MEDS: LACTATED RINGERS 1,000 ML 125 ML IV (21:49)
[2022-12-05] VITALS (9 sets, daily range): BP systolic 111–157; BP diastolic 51–76; PULSE 77–104; RESP 16–28; TEMP 36.8–38.1; O2SAT 89–93
[2022-12-05] MEDS: LACTATED RINGERS 1,000 ML 125 ML IV (06:39)
--- NOTE | 2022-12-05 08:32 | DI.RAD.S_ITS ---
PROCEDURE: XR CHEST 1V INDICATIONS: Bilateral rales/rhonchi TECHNIQUE: One view of the chest was acquired. COMPARISON: None. FINDINGS: Surgical changes and devices: None. Lungs and pleura: Nodularity projecting within the vicinity the 1st left rib articulation with the sternum. No pleural effusions or pneumothorax. Peribronchial cuffing. Mediastinum: Mediastinal contours appear normal. Heart size is normal. Bones and chest wall: No suspicious bony lesions. Overlying soft tissues appear unremarkable. IMPRESSION: Peribronchial cuffing, typically indicating infectious or inflammatory bronchitis. Nodularity projecting within the vicinity of the 1st left rib articulation the sternum, probably artifact of degenerative change, less likely pulmonary nodule. Recommend nonurgent chest CT for confirmation. Dictated by: Baljinder Fung M.D. on 12/05/2022 at 9:03 Approved by: Baljinder Fung M.D. on 12/05/2022 at 9:04
[2022-12-05] MEDS: OXYCODONE IR 5 MG TABLET PO ×3 (08:46→20:19)
[2022-12-05] MEDS: lisinopriL 10 MG TABLET PO (08:46)
[2022-12-05] MEDS: NICOTINE 14 PATCH 14 MG TOP (08:46)
[2022-12-05] MEDS: AMLODIPINE 5 MG TABLET PO (08:46)
[2022-12-05] MEDS: DOCUSATE 100 MG CAPSULE PO ×2 (08:47→20:04)
[2022-12-05] MEDS: PREGABALIN 75 MG CAPSULE PO ×2 (08:47→20:04)
[2022-12-05] MEDS: GABAPENTIN 300 MG CAPSULE PO ×3 (08:48→20:04)
--- NOTE | 2022-12-05 09:00 | PT.IPTN ---
Current Diagnoses Spondylolisthesis, lumbar region (12/02/22) Spinal stenosis, lumbar region with neurogenic claudication (12/02/22) Surgery Performed Operation Date: 12/02/22 12:45 Actual Procedures p L3-4, L4-5 TLIF w. posterior instrumentation -Robot - Mariza Do MD Physical Therapy Treatment Note M2 PT-IP Current Condition Start: 12/03/22 13:33 Freq: NEEDED Status: Active Protocol: Document 12/03/22 11:44 AB (Rec: 12/03/22 13:52 AB [id number]) Physical Therapy Current Condition Current Condition Evaluation Date 12/03/22 Treatment Diagnosis s/p L3-4, L4-5 TLIF; difficulty in walking Onset Date 12/02/22 M3 PT-IP Subjective Start: 12/03/22 13:33 Freq: NEEDED Status: Active Protocol: Document 12/05/22 09:24 TS (Rec: 12/05/22 09:42 TS [id number]) Subjective Physical Therapy Visit Type Type Treatment Note Visit Start Time 09:00 Visit Stop Time 09:21 Total Visit Minutes 21 Notes After working with pt this therapist was notified by OT pt with possible PE. Hold therapy for rest of day. Number of WINDING MACHINE OPERATOR Visits 2 Physical Therapy Visit Comments Patient Comments Pt reports feeling tight and sore today in her legs and back, agreeable to PT. Therapy Pain Assessment Pain When Pain Assessed During Mobility Pain Present Pain Present Pain Reported M4 PT-IP Mobility and Gait Start: 12/03/22 13:33 Freq: NEEDED Status: Active Protocol: Document 12/05/22 09:24 TS (Rec: 12/05/22 09:42 TS [id number]) PT-Bed Mobility Assessment Rolling Type of Rolling Log Rolling Level of Assist Maximal Assistance Supine to Sit Supine to Sit Maximum Assistance Sit to Supine Sit to Supine Moderate Assistance PT-Transfer Assessment Comments Mobility Comments Pt found resting in bed on 3L of o2 at 86%, RN was notified. Per RN pt with history of COPD. Pt recalled 2/3 spinal precautions(no lifting). Logroll To R side MaxA, pt c/o spasms in LLE, pt laid back in bed. Logroll onto L side MaxA, pt c/o less pain. Supine to sit MaxA, provided cues for LEs over EOB and UE support, pt c/o increasing pain. Pt attempted to scoot to EOB but was too painful. Sit to supine ModA for LEs and max cueing for sequencing. Pt scooted to HOB MaxA x2 with transfer pad. Pt was left in bed with call light and tray table within reach, RN notified. Gait Assessment Comments Gait Comments Unable at this time Stair Climbing Assessment Comments Stair Climbing Comments Not at this time. PT-Balance Assessment Sitting Balance and Reactions Static Sitting Balance Ability Fair Dynamic Sitting Balance Ability Fair M5 PT-IP Objective Assessments Start: 12/03/22 13:33 Freq: NEEDED Status: Active Protocol: Document 12/03/22 11:44 AB (Rec: 12/03/22 13:52 AB [id number]) Orientation Orientation/Cognition Level of Alertness Alert Orientation Name,Place,Situation Language Function Ability No Deficits Noted Safety Awareness Decreased Safety Awareness Memory Description Short Term Impaired Comments with confusion Gross Range of Motion Lower Extremity ROM Assessment Within Functional Limits Strength Lower Extremity Strength Assessment Bilaterally Impaired Comments Strength Comments RLE: 4-/5 LLE: 3+/5 Sensation Assessment Sensation Gross Sensation WNL Muscle Tone Muscle Tone WNL Yes M6 PT-IP Treatment Start: 12/03/22 13:33 Freq: NEEDED Status: Active Protocol: Document 12/05/22 09:24 TS (Rec: 12/05/22 09:42 TS [id number]) Physical Therapy Treatment Education Education Provided Precautions,Weight Bearing Status,Post-Op Packet,Safety M7 PT-IP Assessment and Plan Start: 12/03/22 13:33 Freq: NEEDED Status: Active Protocol: Document 12/05/22 09:24 TS (Rec: 12/05/22 09:42 TS [id number]) PT Summary Assessment and Plan Potential Rehabilitation Potential Fair Summary Impairments Pain,ROM,Strength,Balance, Coordination,Sensation,Tone, Cognition,Bed Mobility, Transfers,Gait,Activity Tolerance Progress Towards Goals Slow Progress due to Pain,Slow Progress due to Medical Issues Assessment Summary Pt having significant pain at this time, c/o spasms in her LLE. She recalled 2/3 spinal precautions prior to mobility( no lifting). Pt performed logroll MaxA to R and L side. She was MaxA for supine to sit and requires max cueing. After session with pt, therapist was notified from OT that pt may have possible PE and is to be on hold for therapy for the day. PT is recommending SNF at this time to progress functional mobility and activity tolerance. Goals Bed Mobility Goal Minimal Assistance Transfer Goal Minimal Assistance,Front Wheeled Walker Gait Goal Minimal Assistance,Front Wheel Walker Gait Distance 50 Other Goals improve bed mobility, transfers, ambulation using FWW SBA 150 ft 2 platform steps using FWW CGA Days to Meet Goals 10 Frequency of Treatment Frequency Of Treatment Twice a Day Treatment Plan Physical Therapy Treatment Plan Bed Mobility Training,Transfer Training,Gait Training, Therapeutic Exercise,Balance Retraining,Post Op Education, Discharge Planning,Hot or Cold Pack,Neuromuscular Re-ed, Coordination Retraining,Manual Therapy Precautions Lumbar Precautions Log Roll,No Twisting,Limit Bending,Lifting Restriction of 10 lbs,Gait Belt above Incisional Area Recommendations To Nursing Amount of Assist Needed 2 Person Assist Discharge Recommendations PT Discharge Recommendations SNF Rehab Transportation Needs at Discharge Private Vehicle,Wheelchair/ Cabulance
--- NOTE | 2022-12-05 09:25 | P.CONS_ITS ---
History of Present Illness Consult details Date Patient Seen: 12/05/22 Time Patient Seen: 09:25 Chief complaint: Lumbar TLIF w/posterior instrumentation Reason for consult: hypoxic respiratory failure Narrative: This is an 82 year old female with PMH of HTN, spinal stenosis who is POD #3 s/p 2 level lumbar fusion, overnight she developed the need for oxygen and medicine was consulted this morning. She states she feels a bit short of breath, with nasal congestion this morning. She has a mild cough, non productive, but is afraid to cough due to pain in her left leg. She denies chest pain, nausea, vomiting, abdominal pain, dysuria, urinary frequency. She was a prior smoker, smoked for about 25 years with 1/2 ppd but stopped 30 years ago. Initial labs showed an elevated troponin at 0.297, with elevated proBNP. CTA negative for PE but shows some mucous plugging. EKG with some non-specific changes compared to prior, discussed with cardiology whom recommended TTE, if abnormal stress testing given lack of chest pain at this time. May represent myocardial injury, but at this time so soon after lumbar fusion anticoagulation is risky as would be interventional management. Meds Home Medications and Allergies Home Medications Medication Instructions Recorded Confirmed Type amlodipine 5 mg tablet 5 mg PO DAILY 11/24/22 12/02/22 History gabapentin 300 mg capsule 300 mg PO TID 11/24/22 12/02/22 History lisinopril 10 mg tablet 10 mg PO DAILY 11/24/22 12/02/22 History pregabalin 75 mg capsule 75 mg PO BID 11/24/22 12/02/22 History hydroxyzine pamoate 25 mg capsule 25 mg PO TID-QID PRN spasms #60 12/04/22 Rx (Vistaril) caps oxycodone-acetaminophen 5 mg-325 2 tab PO Q4-6H PRN pain #60 tabs 12/04/22 Rx mg tablet (Percocet) Allergies Allergy/AdvReac Type Severity Reaction Status Date / Time No Known Drug Allergies Allergy Verified 12/02/22 11:20 Review of Systems Review of Systems Narrative: All other systems reviewed with the patient and are negative unless otherwise stated. Exam Vital Signs (past 8 hours): - 12/05/22 04:05 12/05/22 07:44 12/05/22 08:08 Temperature 98.6 F 99.2 F Pulse Rate 77 94 H Respiratory Rate 16 28 H Blood Pressure 157/69 H 143/59 H Pulse Oximetry 92 93 89 L Oxygen Delivery Method Nasal Cannula Oxygen Flow Rate 3 3 3 Fraction of Inspired Oxygen 32 12/05/22 08:46 Temperature Pulse Rate 104 H Respiratory Rate Blood Pressure 152/67 H Pulse Oximetry Oxygen Delivery Method Oxygen Flow Rate Fraction of Inspired Oxygen Fraction of Inspired Oxygen 32 SaO2/FiO2 Ratio 290 Oxygen Delivery Method Nasal Cannula Oxygen Flow Rate 3 Narrative Exam Narrative: General:? Patient is well developed and well nourished, in no distress at this time. HEENT:? Normocephalic, atraumatic, extraocular muscles intact, oral pharynx is clear and mucous membranes are moist. Neck: supple and symmetric, trachea is midline, no cervical adenopathy. Negative for JVD Chest:? Normal AP diameter and contour without kyphoscoliosis, no tachypnea, equal chest rise bilaterally. Lungs:? diffuse rales, no wheezing. Cardio:?RRR no m/r/g. Abdomen: S NT ND. Extremities: No edema or joint effusions. No cyanosis or clubbing. Skin:? Pale,? Warm to touch,dry and intact without rashes, ulcerations or yamilka chiae.? Neuro:? Alert and orientated x3,? sensation to touch intact in all extremities, no gross deficits noted of cranial nerves. Psych:? Patient has a well-kept appearance, appropriate affect, mental status attitude thought context and judgment are appropriate for age. Objective ECG Impression: NSR with likely early repolarization abnormalities in precordial leads, no obvious acute ischemia. Labs 12/05/22 09:30 12/05/22 09:30 [facility] Medical History Arthritis Degenerative joint disease HTN (hypertension) Spinal stenosis Tobacco dependence Surgical History H/O arthroscopic knee surgery H/O knee surgery History of appendectomy History of breast biopsy History of cholecystectomy History of tonsillectomy Status post epidural steroid injection Social History household members: none Tobacco & Substance Use Smoking Status: Former smoker alcohol intake: never Assessment & Plan Assessment & Plan narrative: 1. Acute respiratory failure with hypoxia - unclear if this represents a pneumonia, acute heart failure, or chronic lung disease with exacerbation with mucous plugging noted on CTA - CTA negative for PE, but does show mucous plugging, consider edema as etiology as well. - with negative procalcitionin will encourage IS, though low threshold for antibiotics or diuretics depending on clinical picture moving forward. - elevated bicarb on chemistries may indicate chronic lung disease as well. - RT eval and treat. Recommend chest PT. - check Respiratory panel. 2. Possible acute heart failure with myocardial injury - troponin 0.297, TTE ordered and pending with elevated proBNP - discussed with cardiology, medical management recommended without need for heparin infusion at this time, pending TTE results. - continue to follow troponin until downtrending. - consider diuresis as noted above. 3. HTN - continue home medications for now, pending TTE as may need adjustments to home therapy. 4. Lumbar spinal stenosis s/p lumbar fusion - management per primary team. 5. Acute anemia, presumed blood loss due to surgery - appears stable on repeat labs this morning. - continue to follow Code: DNR, surrogate is patient's son DVT: per primary team at this time. I have utilized all available immediate resources to obtain, update, or review the patient's current medications. Addition history obtained via discussion with orthopedic provider, I have reviewed patient's imaging, lab evaluation, and EKG personally. Additionally reviewed patient's current documentation. Will continue to follow.
[2022-12-05 09:37] LABS: Add Manual Diff / Slide Review NO; Basophils Absolute Auto 0 /uL (0-100); Basophils Percent Auto 0.4 % (0-2); Eosinophils Absolute Auto 0 /uL (0-450); Hematocrit 33.6 % (36-46); Hemoglobin 11.4 g/dL (12.0-16.0); Lymphocytes Absolute Auto 1700 /uL (1100-4500); Lymphocytes Percent Auto 18.7 % (25-40); Mean Corpuscular HGB Conc 33.9 % (30-36); Mean Corpuscular Volume 94.5 fL (80-100); Monocytes Absolute Auto 600 /uL (0-900); Monocytes Percent Auto 6.4 % (3-14); Neutrophils Absolute Auto 6800 /uL (1500-7000); Neutrophils Percent Auto 74.5 % (50-75); Platelet Count 192 X10^3/uL (150-400); Red Blood Cell Count 3.55 X10^6/uL (4.0-5.2); Red Cell Distribution Width 13.4 % (11.6-14.8); White Blood Cell Count 9.1 X10^3/uL (4.5-11.0)
--- NOTE | 2022-12-05 09:43 | PT-IP ANOTE ---
Pt being evaluated for possible PE, hold therapy for rest of day.
[2022-12-05 09:54] LABS: Alanine Aminotransferase 26 IU/L (<35); Albumin 3.2 g/dL (3.5-5.0); Albumin Globulin Ratio 1.3 (1.0-2.8); Alkaline Phosphatase 81 U/L (38-126); Aspartate Aminotransferase 53 IU/L (14-36); BUN Creatinine Ratio 16.7 (6-22); Bilirubin Total 0.7 mg/dL (0.2-1.3); Blood Urea Nitrogen 10 mg/dL (7-17); Calcium 8.4 mg/dL (8.4-10.2); Carbon Dioxide 36 mmol/L (22-32); Chloride 98 mmol/L (98-107); Estimated Glomerular Filt Rate > 60 mL/min (>60); Globulin 2.5 g/dL (1.7-4.1); Glucose 124 mg/dL (80-110); HEMOLYSIS 19 (0-50); Potassium 4.3 mmol/L (3.4-5.1); Sodium 135 mmol/L (137-145); Total Protein 5.7 g/dL (6.3-8.2)
[2022-12-05 10:01] LABS: NT-proBNP (BNP-Adult 18+) 1100 pg/mL (<450)
[2022-12-05 10:29] LABS: Troponin I 0.297 ng/mL (0.01-0.034)
--- NOTE | 2022-12-05 10:33 | DI.CT.S_ITS ---
PROCEDURE: CT ANGIO CHEST PE PROTOCOL INDICATIONS: acute respiratory failure POD#3 lumbar fusion TECHNIQUE: After the administration of intravenous contrast, 2 mm thick sections acquired from the pulmonary apices to the posterior costophrenic angles. 3-dimensional maximum intensity projection (MIP) coronal and sagittal reformats were then acquired through the thorax. For radiation dose reduction, the following was used: automated exposure control, adjustment of mA and/or kV according to patient size. COMPARISON: None. FINDINGS: Image quality: Excellent. Pulmonary arteries: Pulmonary arteries are normal in size, and demonstrate no intraluminal filling defects to suggest central pulmonary embolism. Lungs and pleura: Bibasilar mucous plugging. Collapse of much of the left lower lobe, as well as the lateral basal segment of the right lower lobe. No pulmonary masses are identified. Bilateral pleural plaques Mediastinum: Heart size is normal, without pericardial effusion. Moderate coronary artery calcifications. No mediastinal or hilar adenopathy. Thoracic aorta is normal in caliber and enhancement. Esophagus is normal in caliber, with small hiatal hernia. Bones and chest wall: No suspicious bony lesions. Old superior endplate compression of L1. Ribs and thoracic spine appear intact throughout. Thyroid gland is unremarkable. No axillary or supraclavicular adenopathy. Abdomen: Visualized upper abdominal solid organs appear normal in the early arterial phase of enhancement. IMPRESSION: 1. No acute pulmonary emboli. 2. Bilateral mucous plugging. 3. Collapse of much of the left lower lobe in a portion of the right lower lobe. Comment: Recommend progress films till clear. This may potentially include follow-up CT in 2-3 months. Dictated by: Duglas Dave M.D. on 12/05/2022 at 11:58 Approved by: Duglas Dave M.D. on 12/05/2022 at 12:05
--- NOTE | 2022-12-05 11:34 | DI.ECHO.S_ITS ---
[facility]---------+ [facility] +---------+ : : [address] : : : : [id number] : : : : Phone: [phone]+ Echocardiogram Report + + :Name: SIMI ROBBINS Study Date: 12/05/2022 Height: 64 in : :[facility] ReadingLocation: Weight: 135 lb : : Gender: Female BSA: 1.7 m2 : :: 1940 Age: 82 yrs BP: 152/67 mmHg: :Reason For Study: ACUTE RESPRITORY FAILURE, ELEVATED TROPONIN : :Ordering Physician: HENRIQUE, : :MARGARITA NORTON Performed By: Akosua Resendiz : :Referring: MARGARITA DUENAS : + + Interpretation Summary Normal left ventricle size with hyperdynamic function and ejection fraction 70-75%. Mild tricuspid regurgitation. The right ventricular systolic pressure is estimated to be at least 41 mmHg based on an estimated right atrial pressure of 3 mm Hg. Procedure: A two-dimensional transthoracic echocardiogram with color flow and Doppler was performed. The study quality was technically adequate. There is no prior echocardiogram noted for this patient. The patient was in sinus tachycardia with heart rates between 99-106 bpm during the exam. Left Ventricle: The left ventricle is normal in size and wall thickness. The left ventricle is hyperdynamic. The ejection fraction is estimated to be 70- 75%. There are no focal wall motion abnormalities. Right Ventricle: The right ventricle is normal in size and function. Atria: The left atrial size is normal. Right atrial size is normal. There is no Doppler evidence for an interatrial shunt. Mitral Valve: The mitral valve is normal in structure and function. There is no mitral regurgitation noted. Aortic Valve: The aortic valve opens well. There is no aortic valve stenosis. No aortic regurgitation is present. Tricuspid Valve: The tricuspid valve is normal in structure and function. There is mild tricuspid regurgitation. The right ventricular systolic pressure is estimated to be at least 41 mmHg based on an estimated right atrial pressure of 3 mm Hg. Pulmonic Valve: The pulmonic valve is not well visualized. There is no pulmonic valvular regurgitation. Great Vessels: The aortic root is normal size. The dimensions of the ascending aorta are normal. The IVC is of normal diameter and collapses greater than 50% with a sniff. This suggests a low right atrial pressure of 3 mm Hg. Pericardium/ Pleura There is no pericardial effusion. There is no pleural effusion. MMode/2D Measurements & Calculations LVIDd: 4.1 cm LVOT diam: 2.0 cm LVIDs: 2.8 cm Ao root diam: 2.8 cm FS: 32.5 % asc Aorta Diam: 3.1 cm IVSd: 0.84 cm LVPWd: 0.90 cm LV redmond. diameter/BSA (cm/m^2): 2.5 LV sys. diameter/BSA (cm/m^2): 1.7 LA A2 area: 17.2 cm2 RA long axis: 4.3 cm LA A4 area: 14.5 cm2 RA area: 8.4 cm2 LA length (vol): 5.0 cm RA vol: 14.0 ml LA vol: 42.3 ml RA : 8.5 ml/m2 LA vol index: 25.6 ml/m2 IVC diam: 1.1 cm RVD1 (basal): 3.0 cm RVD2 (mid): 1.9 cm TAPSE: 2.3 cm Doppler Measurements & Calculations Ao V2 max: 163.5 cm/sec LVOT Max Arnie: 105.3 cm/sec Ao V2 mean: 108.0 cm/sec LV V1 max P.4 mmHg Ao max P.7 mmHg LV V1 VTI: 19.3 cm Ao mean P.4 mmHg MAL(I,D): 2.2 cm2 Ao V2 VTI: 27.4 cm MAL(V,D): 2.0 cm2 sev ratio: 0.70 MAL indexed to BSA (cm^2/m^2): 1.3 MV E max arnie: 94.8 cm/sec TR max arnie: 306.0 cm/sec MV A max arnie: 127.9 cm/sec TR max P.5 mmHg MV E/A: 0.74 PA V2 max: 109.6 cm/sec Med Peak E' Arnie: 7.4 cm/sec PA V2 mean: 83.3 cm/sec E/E' med: 12.8 PA mean P.0 mmHg Lat Peak E' Arnie: 7.3 cm/sec PA pr(Accel): 34.5 mmHg E/E' lat: 13.0 E/e' average: 12.9 MV dec time: 0.14 sec MVA(VTI): 2.6 cm2 MV V2 mean: 90.8 cm/sec SV(LVOT): 59.3 ml MV mean P.7 mmHg MV V2 VTI: 23.2 cm Electronically signed by: Jesika Khanna on Reading Physician:12/05/2022 03:07 PM
--- NOTE | 2022-12-05 11:39 | PC.NURSE ---
Addendum entered by Judit Balderas R.N. 12/05/22 19:14: Patient offered miralax for o bm for several days, and suppository. She refused and states I dont want to deal with that right now. Addendum entered by Judit Balderas R.N. 12/05/22 14:38: Patient attempted to have a bowel movement on the commode, she only passed gas. She is resting comfortably. Addendum entered by Judit Balderas R.N. 12/05/22 13:37: Patient is resting comfortably, she denies pain at this time and is putting out yellow urine in her villavicencio catheter. Original Note: Patient worked with physical therapy and did sit up for a short time and was then put back to bed. She complained of pain and was medicated with 5mg of oxycodone. Dressing to lower back is cdi. Troponin level increased to 0.[address] Mcdonnell is aware. He ordered and EKG and CT. She is back and resting comfortably. Patient is now on tele.
--- NOTE | 2022-12-05 12:01 | OT.IPNOTE ---
Ot oren received, chart reviewed and nursing planning to premeditate for pain. America SIMMONS stopped this contract writer in the [facility] and asked that OT and PT hold for today d/t pt having breathing difficulty and they want to work it up further prior to therapies. Notified P.T. Will hold for today and continue to follow.
--- NOTE | 2022-12-05 12:15 | CM.DPC ---
Addendum entered by ROSAMARIA Hernandez 12/05/22 14:23: CONTINUOUS IMPROVEMENT COORDINATOR updated patient on d/c plan. Patient appreciative and in agreement. Continue to wait on pending [employer] auth at this time. SL Original Note: DCP Continued: CONTINUOUS IMPROVEMENT COORDINATOR reviewed EMR. Per provider in rounds, not medically stable to d/c today. Per pt, patient felt chest pain and was coughing/SOB when attempting to participate in therapy. Hospitalist consulted and additional testing is being done to learn more regarding her respiratory distress. CONTINUOUS IMPROVEMENT COORDINATOR called Julieth at [facility]. Julieth is currently attempting to get an auth from [employer] and can accept patient if auth approved. CONTINUOUS IMPROVEMENT COORDINATOR faxed updated PT note to [facility]. CM Labor Relations Consultant Candice emailed H&P, nursing notes, and SSN to Julieth at [facility]. CONTINUOUS IMPROVEMENT COORDINATOR attempted to speak with patient, but was being transported for further testing at this time. CONTINUOUS IMPROVEMENT COORDINATOR called CINTHYA Colby ([phone]) to update her on the d/c plan. Earnestine appreciative of the information. Plan: pending results and insurance auth. Plan 1) [facility] for SNF transport with facility. Plan 2) pursue [facility] for SNF. CM team will continue to follow closely. ROSAMARIA Hernandez
[2022-12-05 14:03] LABS: Procalcitonin 0.17 ng/mL (<0.5)
[2022-12-05] MEDS: ALBUTEROL/IPRATROPIUM 3 ML AMPUL INH (14:32)
[2022-12-05] MEDS: AZITHROMYCIN 500 MG in DEXTROSE 5% IN WATER 250 ML 250 MG IV (17:56)
--- NOTE | 2022-12-05 18:45 | PM.PNPO.1 ---
Subjective Subjective Date Patient Seen: 12/05/22 Interval history: Patient is resting in bed, complains of difficulty breathing which started last night. She denies chronic shortness of breath and home oxygen use. She states she was not up out of bed yesterday due to back pain and physical therapy did not come. Still having back pain this morning, marginal control with medication. Denies chest pain, abdominal pain, headache, nausea, vomiting. Exam Vital Signs (past 8 hours): - 12/05/22 14:36 12/05/22 16:58 Temperature 100.6 F H Pulse Rate 103 H Respiratory Rate 24 Blood Pressure 153/76 H Pulse Oximetry 92 92 Oxygen Delivery Method Nasal Cannula Oxygen Flow Rate 3 3 Fraction of Inspired Oxygen 32 SaO2/FiO2 Ratio 290 Oxygen Delivery Method Nasal Cannula Oxygen Flow Rate 3 Narrative Exam Narrative: Pleasant 82 year old female in moderate respiratory distress - O2 sat 92 on 3L by nasal cannula. Tachypneic, shallow breaths with rales and rhonchi to bilateral lower lobes. Bandage intact to lumbar spine. Strength and sensation intact to bilateral lower extremities. Bilateral calves are soft, compressible, and nontender to palpation. Objective Labs 12/05/22 09:30 12/05/22 09:30 Labs: Laboratory Results - last 24 hr 12/05/22 12/05/22 12/05/22 09:30 09:30 09:30 WBC 9.1 RBC 3.55 L Hgb 11.4 L Hct 33.6 L MCV 94.5 MCH 32.0 MCHC 33.9 RDW 13.4 Plt Count 192 Neut % (Auto) 74.5 Lymph % (Auto) 18.7 L [place] % (Auto) 6.4 Eos % (Auto) 0.0 L Baso % (Auto) 0.4 Neut # (Auto) 6800 Lymph # (Auto) 1700 [place] # (Auto) 600 Eos # (Auto) 0 Baso # (Auto) 0 Sodium 135 L Potassium 4.3 Chloride 98 Carbon Dioxide 36 H BUN 10 Creatinine 0.60 Estimated GFR > 60 BUN/Creatinine Ratio 16.7 Glucose 124 H Calcium 8.4 Magnesium 2.0 Total Bilirubin 0.7 AST 53 H ALT 26 Alkaline Phosphatase 81 Troponin I 0.297 H* NT-Pro-B Natriuret Pep 1100 H Total Protein 5.7 L Albumin 3.2 L Globulin 2.5 Albumin/Globulin Ratio 1.3 Procalcitonin 12/05/22 12/05/22 09:30 15:31 WBC RBC Hgb Hct MCV MCH MCHC RDW Plt Count Neut % (Auto) Lymph % (Auto) [place] % (Auto) Eos % (Auto) Baso % (Auto) Neut # (Auto) Lymph # (Auto) [place] # (Auto) Eos # (Auto) Baso # (Auto) Sodium Potassium Chloride Carbon Dioxide BUN Creatinine Estimated GFR BUN/Creatinine Ratio Glucose Calcium Magnesium Total Bilirubin AST ALT Alkaline Phosphatase Troponin I 0.250 H* NT-Pro-B Natriuret Pep Total Protein Albumin Globulin Albumin/Globulin Ratio Procalcitonin 0.17 PFSH Medical History Arthritis Degenerative joint disease HTN (hypertension) Spinal stenosis Tobacco dependence Surgical History H/O arthroscopic knee surgery H/O knee surgery History of appendectomy History of breast biopsy History of cholecystectomy History of tonsillectomy Status post epidural steroid injection Social History household members: none Smoking Status: Former smoker alcohol intake: never Assessment & Plan Post-op Postoperative Procedures: Procedures Operation Date: 12/02/22 12:45 Actual Procedure Side Surgeon p L3-4, L4-5 TLIF w. posterior instrumentation -Robot Mariza Do MD Postoperative day: 3 Postoperative status: other (Shortness of breath, supplemental O2 requirement, bilateral lower lobe rales and rhonchi) Postoperative status narrative: Patient is POD#3 following 2 level TLIF. Overnight she developed shortness of breath with new supplemental oxygen requirement. Upon exam this morning she has audible rales and rhonchi to bilateral lower lobes. Chest XR was ordered, patient advised to keep using IS regularly. Hospitalist consulted for pulmonary workup. Back pain is unchanged, marginal control with medication. Postoperative plan narrative: Pulmonary/cardiac workup per hospitalist. Patient will continue to participate with physical therapy as able given emerging medical issues. Continue multimodal pain regimen as needed. No deep bending, twisting, lifting more than 10 pounds. Disposition pending, though likely discharge to SNF when medically stable. Quality VTE Deep Vein Thrombosis/Pulmonary Embolism Present on Admission: No
[2022-12-05 19:29] LABS: Adenovirus Not Detected (Not Detect); B. parapertussis Not Detected (Not Detecte); Bordetella pertussis Not Detected (Not Detecte); Chlamydophila pneumoniae Not Detected (Not Detect); Coronavirus 229E Not Detected (Not Detect); Coronavirus HKU1 Not Detected (Not Detect); Coronavirus NL 63 Not Detected (Not Detect); Coronavirus OC43 Not Detected (Not Detect); Human Metapneumovirus Not Detected (Not Detect); Human Rhinovirus/Enterovirus Not Detected (Not Detect); Influenza A Not Detected (Not Detect); Influenza B Not Detected (Not Detect); Mycoplasma pneumoniae Not Detected (Not Detect); Parainfluenza Virus 1 Not Detected (Not Detect); Parainfluenza Virus 2 Not Detected (Not Detect); Parainfluenza Virus 3 Not Detected (Not Detect); Parainfluenza Virus 4 Not Detected (Not Detect); Respiratory Syncytial Virus Not Detected (Not Detect); SARS- CoV-2 Not Detected (Not Detecte)
[2022-12-05] MEDS: cefTRIAXone 1,000 MG in SODIUM CHLORIDE 0.9% 100 ML 200 MG IV (20:03)
[2022-12-05] MEDS: SENNOSIDES 8.6 MG TABLET 17.2 MG PO (20:04)
[2022-12-05] MEDS: ACETAMINOPHEN 325 MG TABLET 650 MG PO (21:11)
[2022-12-06] VITALS (8 sets, daily range): BP systolic 119–144; BP diastolic 40–60; PULSE 77–99; RESP 16–18; TEMP 36.2–37.3; O2SAT 92–96
[2022-12-06] MEDS: OXYCODONE IR 5 MG TABLET PO (05:23)
[2022-12-06] MEDS: PREGABALIN 75 MG CAPSULE PO ×2 (08:33→21:47)
[2022-12-06] MEDS: AMLODIPINE 5 MG TABLET PO (08:33)
[2022-12-06] MEDS: lisinopriL 10 MG TABLET PO (08:33)
[2022-12-06] MEDS: DOCUSATE 100 MG CAPSULE PO ×2 (08:33→21:47)
[2022-12-06] MEDS: NICOTINE 14 PATCH 14 MG TOP (08:50)
--- NOTE | 2022-12-06 09:00 | PT.IPTN ---
Current Diagnoses Spondylolisthesis, lumbar region (12/02/22) Spinal stenosis, lumbar region with neurogenic claudication (12/02/22) Surgery Performed Operation Date: 12/02/22 12:45 Actual Procedures p L3-4, L4-5 TLIF w. posterior instrumentation -Robot - Mariza Do MD Physical Therapy Treatment Note M2 PT-IP Current Condition Start: 12/03/22 13:33 Freq: NEEDED Status: Active Protocol: Document 12/03/22 11:44 AB (Rec: 12/03/22 13:52 AB [id number]) Physical Therapy Current Condition Current Condition Evaluation Date 12/03/22 Treatment Diagnosis s/p L3-4, L4-5 TLIF; difficulty in walking Onset Date 12/02/22 M3 PT-IP Subjective Start: 12/03/22 13:33 Freq: NEEDED Status: Active Protocol: Document 12/06/22 09:43 TS (Rec: 12/06/22 10:18 TS [id number]) Subjective Physical Therapy Visit Type Type Treatment Note Visit Start Time 09:00 Visit Stop Time 09:30 Total Visit Minutes 30 Notes Vitals: BP 130/62, HR 80, Spo2 95% at rest, 88-90% with mobility. RN seen before working with Pt due to high troponin levels, Rnc leared to see, troponin is trending down. Number of CORPORATE SAFETY DIRECTOR Visits 3 Physical Therapy Visit Comments Patient Comments Pt somewhat emotional this morning, pt is frustrated with state of her current health, c/o feeling stiff and tight this morning, reports not having much pain at rest but does with mobility, agreeable to PT. Therapy Pain Assessment Pain When Pain Assessed During Mobility Pain Present Pain Present Pain Reported Location Back Scale Used pain scale not stated Description Aching,Cramping,Spasm,With Movement Pain Behaviors Calling Out,Crying,Facial Grimacing,Guarding,Holding Area,Moaning,Restlessness, Wincing Pain Management Techniques Distraction,Modification of Treatment,Re-positioning, Timing of Activity with Medications M4 PT-IP Mobility and Gait Start: 12/03/22 13:33 Freq: NEEDED Status: Active Protocol: Document 12/06/22 09:43 TS (Rec: 12/06/22 10:18 TS [id number]) PT-Bed Mobility Assessment Rolling Type of Rolling Log Rolling Level of Assist Maximal Assistance Supine to Sit Supine to Sit Maximum Assistance,1 Person Assistance,Head of Bed Elevated Sit to Supine Sit to Supine Maximum Assistance,1 Person Assistance Scooting Scooting to Edge of Bed Maximum Assistance PT-Transfer Assessment Sit to and From Stand Sit to and from Stand Maximum Assistance,1 Person Assistance,Use of Upper Extremities Equipment Transfer Assistive Device Gait Belt,Front Wheeled Walker Orthotic/Prosthetic Devices or Brace: No Comments Mobility Comments Pt found resting in bed on 3L of o2, Spo2 95% at rest, BP in supine 130/62, HR 80. Pt recalled 2/3 spinal precautions(no lifting). Pt performed logroll MaxA to R side, pt crying from pain due to pain in LEs, logroll to L side MaxA, slightly more tolerable. Supine to sit MaxA, pt required cues for BUE support and positioning of LEs over EOB. Sitting EOB pt required Daphney for balance due to restlessness with pain, Spo2 checked 88-90% on 3L. She performed sit to stand x2 MaxA with FWW, pt with difficulty weight bearing on LLE due to pain, is unsteady with bent/buckling knees. Pt attempted to take steps but unsafe to do so. Sit to supine into bed MaxA for trunk and LEs. She scooted to HOB MaxA x2 with transfer pad. Pt was left in bed with call light and tray table within reach, RN notified. Gait Assessment Comments Gait Comments Unable at this time Stair Climbing Assessment Comments Stair Climbing Comments Not at this time. PT-Balance Assessment Sitting Balance and Reactions Static Sitting Balance Ability Fair Dynamic Sitting Balance Ability Fair Standing Balance and Reactions Static Standing Balance Ability Poor Dynamic Standing Balance Ability Poor M5 PT-IP Objective Assessments Start: 12/03/22 13:33 Freq: NEEDED Status: Active Protocol: Document 12/03/22 11:44 AB (Rec: 12/03/22 13:52 AB [id number]) Orientation Orientation/Cognition Level of Alertness Alert Orientation Name,Place,Situation Language Function Ability No Deficits Noted Safety Awareness Decreased Safety Awareness Memory Description Short Term Impaired Comments with confusion Gross Range of Motion Lower Extremity ROM Assessment Within Functional Limits Strength Lower Extremity Strength Assessment Bilaterally Impaired Comments Strength Comments RLE: 4-/5 LLE: 3+/5 Sensation Assessment Sensation Gross Sensation WNL Muscle Tone Muscle Tone WNL Yes M6 PT-IP Treatment Start: 12/03/22 13:33 Freq: NEEDED Status: Active Protocol: Document 12/06/22 09:43 TS (Rec: 12/06/22 10:18 TS [id number]) Physical Therapy Treatment Education Education Provided Precautions,Weight Bearing Status,Post-Op Packet,Safety M7 PT-IP Assessment and Plan Start: 12/03/22 13:33 Freq: NEEDED Status: Active Protocol: Document 12/06/22 09:43 TS (Rec: 12/06/22 10:18 TS [id number]) PT Summary Assessment and Plan Potential Rehabilitation Potential Fair Summary Impairments Pain,ROM,Strength,Balance, Coordination,Sensation,Tone, Cognition,Bed Mobility, Transfers,Gait,Activity Tolerance Progress Towards Goals Slow Progress due to Pain,Slow Progress due to Medical Issues Assessment Summary Pt continues to c/o pain in her LEs, L>R, limiting her in progressing her mobility. She is emotional this session with multiple occurrences of crying due to multiple factors , reassured pt she will improve. She continues to be on 3L of o2 at 95% at rest and 88-90% with mobility. She recalled 2/3 spinal precautions prior to mobility, could not recall lifting more than 10lbs. She is MaxA for all bed mobility and requries a moderate amount of cueing for logroll/supine to sit. She performed sit to stand x2 MaxA with FWW, pt having difficulty weight bearing on LLE and has B buckling. Pt attempted to take a few steps but is not safe at thsi time due to poor strength and balance. PT continues to recommend SNF to progress functional mobility and activity tolerance. Goals Bed Mobility Goal Minimal Assistance Transfer Goal Minimal Assistance,Front Wheeled Walker Gait Goal Minimal Assistance,Front Wheel Walker Gait Distance 50 Other Goals improve bed mobility, transfers, ambulation using FWW SBA 150 ft 2 platform steps using FWW CGA Days to Meet Goals 10 Frequency of Treatment Frequency Of Treatment Twice a Day Treatment Plan Physical Therapy Treatment Plan Bed Mobility Training,Transfer Training,Gait Training, Therapeutic Exercise,Balance Retraining,Post Op Education, Discharge Planning,Hot or Cold Pack,Neuromuscular Re-ed, Coordination Retraining,Manual Therapy Precautions Lumbar Precautions Log Roll,No Twisting,Limit Bending,Lifting Restriction of 10 lbs,Gait Belt above Incisional Area Recommendations To Nursing Amount of Assist Needed 2 Person Assist Discharge Recommendations PT Discharge Recommendations SNF Rehab Transportation Needs at Discharge Private Vehicle,Wheelchair/ Cabulance
[2022-12-06] MEDS: GABAPENTIN 300 MG CAPSULE PO ×3 (09:46→21:52)
[2022-12-06] MEDS: OXYCODONE IR 10 MG TABLET PO (10:32)
[2022-12-06] MEDS: BISACODYL 10 MG SUPP PR (10:43)
--- NOTE | 2022-12-06 11:09 | PM.PNPO.1 ---
Subjective Subjective Date Patient Seen: 12/06/22 Time Patient Seen: 07:45 Interval history: Patient states her back pain is [id number]. Denies fever or chills. No shortness of breath or chest pain. Exam Vital Signs (past 8 hours): - 12/06/22 03:17 12/06/22 08:20 12/06/22 08:33 Temperature 98.5 F Pulse Rate 77 92 H Respiratory Rate 16 Blood Pressure 142/60 H 137/56 L Pulse Oximetry 92 95 Oxygen Delivery Method Nasal Cannula Oxygen Flow Rate 3.5 3 12/06/22 08:00 Temperature 98.1 F Pulse Rate 89 Respiratory Rate 17 Blood Pressure 144/57 H Pulse Oximetry 92 Oxygen Delivery Method Oxygen Flow Rate 3.5 Fraction of Inspired Oxygen 32 SaO2/FiO2 Ratio 290 Oxygen Delivery Method Nasal Cannula Oxygen Flow Rate 3 Narrative Exam Narrative: 82-year-old female resting comfortably in bed in no apparent distress. Motor functions intact bilateral lower extremities. Sensation grossly intact to light touch bilateral lower extremities. Const General: cooperative and comfortable Resp Effort & Inspection: normal respiratory effort and able to speak in complete sentences Objective Labs 12/05/22 09:30 12/05/22 09:30 Labs: Laboratory Results - last 24 hr 12/05/22 12/05/22 12/05/22 09:30 15:31 18:11 Troponin I 0.250 H* Procalcitonin 0.17 Chlamy pneumoniae PCR Not detected Adenovirus (PCR) Not detected B. pertussis DNA (PCR) Not detected B.parapertussis DNA PCR Not detected Coronavirus OC43 (PCR) Not detected Coronavirus HKU1 (PCR) Not detected Coronavirus 229E (PCR) Not detected SARS-CoV-2 (PCR) Not detected Coronavirus NL63 (PCR) Not detected Human Metapneumovir PCR Not detected Influenza Type A (PCR) Not detected Influenza Type B (PCR) Not detected M. pneumoniae (PCR) Not detected Parainfluenza 1 (PCR) Not detected Parainfluenza 2 (PCR) Not detected Parainfluenza 3 (PCR) Not detected Parainfluenza 4 (PCR) Not detected RSV (PCR) Not detected Entero/Rhino (PCR) Not detected PFSH Medical History Arthritis Degenerative joint disease HTN (hypertension) Spinal stenosis Tobacco dependence Surgical History H/O arthroscopic knee surgery H/O knee surgery History of appendectomy History of breast biopsy History of cholecystectomy History of tonsillectomy Status post epidural steroid injection Social History household members: none Smoking Status: Former smoker alcohol intake: never Assessment & Plan Post-op Postoperative Procedures: Procedures Operation Date: 12/02/22 12:45 Actual Procedure Side Surgeon p L3-4, L4-5 TLIF w. posterior instrumentation -Robot Mariza Do MD Postoperative day: 4 Postoperative status narrative: Postop day 4 status post lumbar fusion hospitalist consulted December 05, 2022 for hypoxic respiratory failure unclear etiology at this point hospitalist continuing workup Postoperative plan narrative: Mobilize with physical therapy, limit bending, twisting, lifting Hospitalist following for acute respiratory failure with hypoxia, possible acute heart failure with myocardial injury, hypertension, acute anemia presumed blood loss due to surgery Disposition to be determined Quality VTE Deep Vein Thrombosis/Pulmonary Embolism Present on Admission: No
--- NOTE | 2022-12-06 11:39 | OT.IPNOTE ---
Pt states just trying to focus on use of her catheter and not wanting to get up at this time. Able to explain to the pt that best to try to relax and that the urine will flow to the catheter. Nursing aid aware.
--- NOTE | 2022-12-06 13:08 | PT.IPTN ---
Current Diagnoses Spondylolisthesis, lumbar region (12/02/22) Spinal stenosis, lumbar region with neurogenic claudication (12/02/22) Surgery Performed Operation Date: 12/02/22 12:45 Actual Procedures p L3-4, L4-5 TLIF w. posterior instrumentation -Robot - Mariza Do MD Physical Therapy Treatment Note M2 PT-IP Current Condition Start: 12/03/22 13:33 Freq: NEEDED Status: Active Protocol: Document 12/03/22 11:44 AB (Rec: 12/03/22 13:52 AB [id number]) Physical Therapy Current Condition Current Condition Evaluation Date 12/03/22 Treatment Diagnosis s/p L3-4, L4-5 TLIF; difficulty in walking Onset Date 12/02/22 M3 PT-IP Subjective Start: 12/03/22 13:33 Freq: NEEDED Status: Active Protocol: Document 12/06/22 14:00 TS (Rec: 12/06/22 14:29 TS [id number]) Subjective Physical Therapy Visit Type Type Treatment Note Visit Start Time 13:08 Visit Stop Time 13:42 Total Visit Minutes 34 Notes Vitals:143/65 supine, 126/59 sitting, Spo2 93% on 3L at rest, #l with mobiity 84%-86%, Spo2 92 on 5L with after mobility. Number of TOW MOTOR DRIVER Visits 4 Physical Therapy Visit Comments Patient Comments Pt in better spirits this morning, reports pain has decreased, 6/10 at rest, agreeable to PT. Therapy Pain Assessment Pain When Pain Assessed At Rest Pain Present Pain Present Pain Reported Location Back Intensity 6 Scale Used Numeric (0 - 10) Description Aching,Cramping,Spasm,With Movement Pain Behaviors Facial Grimacing,Guarding, Wincing Pain Management Techniques Distraction,Modification of Treatment,Re-positioning, Timing of Activity with Medications M4 PT-IP Mobility and Gait Start: 12/03/22 13:33 Freq: NEEDED Status: Active Protocol: Document 12/06/22 14:00 TS (Rec: 12/06/22 14:29 TS [id number]) PT-Bed Mobility Assessment Rolling Type of Rolling Log Rolling Level of Assist Moderate Assistance Supine to Sit Supine to Sit Moderate Assistance,1 Person Assistance,Head of Bed Elevated Sit to Supine Sit to Supine Maximum Assistance,1 Person Assistance Scooting Scooting to Edge of Bed Moderate Assistance PT-Transfer Assessment Sit to and From Stand Sit to and from Stand Moderate Assistance,Maximum Assistance,1 Person Assistance ,2 Person Assistance,Use of Upper Extremities Equipment Transfer Assistive Device Gait Belt,Front Wheeled Walker Orthotic/Prosthetic Devices or Brace: No Comments Mobility Comments Pt found resting in bed on 3L, 93%, decreased with mobility to mid 80's on 3L, increased o2 to 5L per nursing, Spo2 90% on 5L. BP in supine prior to mobility 143/65. Pt recalled 2 /3 spinal precautions(no lifting). Logroll ModA for turning of hips and shoulders, provided cues for use of grab bars and coming all the way on side. Supine to sit ModA, pt demonstrated good carryover of sequencing. She scooted to EOB ModA, provided cues for BUE support and tactile cues for scooting of hips. Sit to stand x1 ModA x2, pt with buckling of knees in standing required cues for knee extension. Pt sat down EOB due to fatigue, sit to stand MaxA x1 with FWW, knees continue to buckle, pt sidestepped x5 to HOB, sat back EOB. Sit to supine MaxA for LEs into bed, provided cues for logroll sequencing. Pt was left back in bed on 5L of o2, SPo2 92% after ~1min of rest, call liight left within reach. Gait Assessment Comments Gait Comments Unable at this time Stair Climbing Assessment Comments Stair Climbing Comments Not at this time. PT-Balance Assessment Sitting Balance and Reactions Static Sitting Balance Ability Fair Dynamic Sitting Balance Ability Fair Standing Balance and Reactions Static Standing Balance Ability Poor Dynamic Standing Balance Ability Poor M5 PT-IP Objective Assessments Start: 12/03/22 13:33 Freq: NEEDED Status: Active Protocol: Document 12/03/22 11:44 AB (Rec: 12/03/22 13:52 AB [id number]) Orientation Orientation/Cognition Level of Alertness Alert Orientation Name,Place,Situation Language Function Ability No Deficits Noted Safety Awareness Decreased Safety Awareness Memory Description Short Term Impaired Comments with confusion Gross Range of Motion Lower Extremity ROM Assessment Within Functional Limits Strength Lower Extremity Strength Assessment Bilaterally Impaired Comments Strength Comments RLE: 4-/5 LLE: 3+/5 Sensation Assessment Sensation Gross Sensation WNL Muscle Tone Muscle Tone WNL Yes M6 PT-IP Treatment Start: 12/03/22 13:33 Freq: NEEDED Status: Active Protocol: Document 12/06/22 14:00 TS (Rec: 12/06/22 14:29 TS [id number]) Physical Therapy Treatment Education Education Provided Precautions,Weight Bearing Status,Post-Op Packet,Safety M7 PT-IP Assessment and Plan Start: 12/03/22 13:33 Freq: NEEDED Status: Active Protocol: Document 12/06/22 14:00 TS (Rec: 12/06/22 14:29 TS [id number]) PT Summary Assessment and Plan Potential Rehabilitation Potential Fair Summary Impairments Pain,ROM,Strength,Balance, Coordination,Sensation,Tone, Cognition,Bed Mobility, Transfers,Gait,Activity Tolerance Progress Towards Goals Slow Progress due to Pain,Slow Progress due to Medical Issues Assessment Summary Pt made some progress with her mobility but remains limited by pain and respiratory issues . Pt was resting on 3L of o2 prior to mobility, desat to mid 80's with mobility, increased o2 to 5L, improved to 90% with mobility. She required decreased assist this session with bed mobility to ModA and demonstrated some carryover of logroll and supine to sit. She progressed into standing this session with FWW ModA x2 and MaxA x1. Her knees continue to buckle is not safe for gait at this time. PT continues to recommend SNF to progress bed mobility, transfers, gait and activity tolerance. Goals Bed Mobility Goal Minimal Assistance Transfer Goal Minimal Assistance,Front Wheeled Walker Gait Goal Minimal Assistance,Front Wheel Walker Gait Distance 50 Other Goals improve bed mobility, transfers, ambulation using FWW SBA 150 ft 2 platform steps using FWW CGA Days to Meet Goals 10 Frequency of Treatment Frequency Of Treatment Twice a Day Treatment Plan Physical Therapy Treatment Plan Bed Mobility Training,Transfer Training,Gait Training, Therapeutic Exercise,Balance Retraining,Post Op Education, Discharge Planning,Hot or Cold Pack,Neuromuscular Re-ed, Coordination Retraining,Manual Therapy Precautions Lumbar Precautions Log Roll,No Twisting,Limit Bending,Lifting Restriction of 10 lbs,Gait Belt above Incisional Area Recommendations To Nursing Amount of Assist Needed 2 Person Assist Discharge Recommendations PT Discharge Recommendations SNF Rehab Transportation Needs at Discharge Private Vehicle,Wheelchair/ Cabulance
--- NOTE | 2022-12-06 13:42 | OT.IP.EVAL ---
Addendum entered and electronically signed by Tosha Acevedo OT 12/06/22 14:28: edit Original Note: Current Diagnoses Spondylolisthesis, lumbar region (12/02/22) Spinal stenosis, lumbar region with neurogenic claudication (12/02/22) Surgery Performed Operation Date: 12/02/22 12:45 Actual Procedures p L3-4, L4-5 TLIF w. posterior instrumentation -Robot - Mariza Do MD Past Medical History (Last Reviewed 12/06/22 @ 11:12 by Ady Palmer PA-C) Arthritis Degenerative joint disease HTN (hypertension) Spinal stenosis Tobacco dependence Surgical History (Last Reviewed 12/06/22 @ 11:12 by Ady Palmer PA-C) H/O arthroscopic knee surgery H/O knee surgery History of appendectomy History of breast biopsy History of cholecystectomy History of tonsillectomy Status post epidural steroid injection Occupational Therapy Inpatient Evaluation/Re-Eval M1 PT/OT-IP Prior Functional Status Start: 12/06/22 14:04 Freq: NEEDED Status: Active Protocol: Document 12/06/22 14:04 [facility] (Rec: 12/06/22 14:26 [facility] [id number]) Medical Review Prior Functional Status Medical History Reviewed Yes Communication able to make needs known; with slight confusion and with difficutly following directions Mobility and Gait pt stated that she was modified independent with mobility but has been using and switching from a SPC, FWW, 4WW for ambulation for the last 5 months due to back pain . able to ambulate without AD prior to that Activities of Daily Living and IADL's Pt states able to own ADL and IADL needs prior. Social History Household Members none Living Arrangements House Number of Floors (Floors) One Floor Number of Stairs To Enter/Railing? pt plans to go to her son/DIL house upon d/c and home info provided is regarding daughter 's home set up 2 platform steps to enter Home Environment Standard Height Toilet,Tub/ Shower Home Equipment Front Wheel Walker,Four Wheel Walker,Straight Cane,Tub Transfer Bench,Hand Held Shower Additional Social History Comment pt will go to her son/DIL's house M2 OT-IP Current Condition Start: 12/06/22 14:04 Freq: Status: Active Protocol: Document 12/06/22 14:04 [facility] (Rec: 12/06/22 14:26 [facility] [id number]) Occupational Therapy Current Condition Current Condition Evaluation Date 12/06/22 Treatment Diagnosis S/p L3-L5 TLIF Diagnosis Onset Date 12/02/22 Post Operative Precautions Lumbar Precautions Log Roll,No Twisting,Limit Bending,Lifting Restriction of 10 lbs,Gait Belt above Incisional Area M3 OT- IP Subjective and Pain Start: 12/06/22 14:04 Freq: Status: Active Protocol: Document 12/06/22 14:04 [facility] (Rec: 12/06/22 14:26 [facility] [id number]) OT- Subjective Occupational Therapy Visit Type Type Initial Evaluation Visit Start Time 13:07 Visit Stop Time 13:42 Total Visit Minutes 35 Occupational Therapy Visit Comments Patient Comments Pt agreed to try to get up. Patient/Caregiver Goals To get better. OT Pain Assessment Pain When Pain Assessed During Mobility Pain Present Pain Present Pain Reported Location Back Intensity 6 Scale Used Numeric (0 - 10) M4 OT- IP ADL's Start: 12/06/22 14:04 Freq: Status: Active Protocol: Document 12/06/22 14:04 [facility] (Rec: 12/06/22 14:26 [facility] [id number]) OT LBO-Ceyz-Gqitgar Comments OT Self-Feeding Comments not at meal time OT ADL-Grooming Comments OT Grooming Comments Not performed. OT ADL-Oral Care Comments Oral Care Comments Not performed. OT ADL-Dressing General Eval Lower Body Dressing Ability Maximum Assistance Areas Needing Assistance Socks Comments OT Dressing Comments Able to educated pt on use of sock aid and regulatory auditor to increase for independence for LB dressing needs and to able to best follow her back precautions. OT ADL-Toileting Comments OT Toileting Comments Catheter in place. OT ADL-Bathing Comments OT Bathing Comments Sponge bath more appropriate at this time. M5 OT- IP IADL's Start: 12/06/22 14:04 Freq: Status: Active Protocol: Document 12/06/22 14:04 [facility] (Rec: 12/06/22 14:26 [facility] [id number]) OT-Instrumental Activities of Daily Living Deficits IADL Deficits Identified Deficits Home Safety Awareness Home Safety Comments At this time pt would require assist for all needs due to decreased strength and balance and is a high fall risk due to her legs buckling. M6 OT- IP Functional Cognition Start: 12/06/22 14:04 Freq: Status: Active Protocol: Document 12/06/22 14:04 [facility] (Rec: 12/06/22 14:26 [facility] [id number]) Cognitive Factors Limiting Selfcare Function Cognitive Ability Level of Alertness Alert Ability to Follow Commands Able to Follow One Step Commands Safety Awareness Decreased Recall of Precautions,Decreased Ability to Apply Precautions Cognitive Comments Cognitive Assessment Comments Pt a little slow to respond to name all her back precautions . Pt able to follow commands for ADL and mobility needs and needing cues to incorporate to prevent from twisting. M7 OT- IP Mobility and Balance Start: 12/06/22 14:04 Freq: Status: Active Protocol: Document 12/06/22 14:04 [facility] (Rec: 12/06/22 14:26 [facility] [id number]) OT- Bed Mobility Assessment Supine to Sit Supine to Sit Assist Moderate Assistance,1 Person Assistance Sit to Supine Sit to Supine Assist Maximum Assistance,1 Person Assistance Scooting Scooting to Edge of Bed Moderate Assistance,1 Person Assistance OT-Transfer Assessment Sit to and From Stand Sit to and from Stand Moderate Assistance,Maximum Assistance,1 Person Assistance ,2 Person Assistance Technique Transfer Destination Bed Transfer Technique Stand Step Pivot Devices Transfer Assistive Devices Gait Belt,Front Wheeled Walker Comments Mobility Comments MODA x1 to get to the edge of the bed and heavy use of bed rail to get up. MAXA X1 to get back into supine. MODA X 2 to MAX X 1 to stand to FWW. Pt having difficulty to straighten her legs and that her knees buckle. Able to take a few side steps by shuffling her feet with heavy use of the BUE on the FWW and MAXAx1. OT- Balance Assessment Sitting Balance and Reactions Static Sitting Balance Ability Good Dynamic Sitting Balance Ability Fair Standing Balance and Reactions Static Standing Balance Ability Poor Dynamic Standing Balance Ability Poor M9 OT- IP Assessment and Plan Start: 12/06/22 14:04 Freq: Status: Active Protocol: Document 12/06/22 14:04 [facility] (Rec: 12/06/22 14:26 [facility] [id number]) OT Summary Assessment and Plan Potential Rehabilitation Potential Good Analytic Complexity at Evaluation Moderate Summary OT Impairments Pain,Strength,Balance, Functional Mobility,Grooming, Dressing,Toileting,Bathing, Toilet Transfers,Shower Transfers,Activity Tolerance Progress Towards Goals Slow Progress due to Pain,Slow Progress due to Medical Issues,Slow Progress due to Activity Tolerance Assessment Summary Pt MOD complexity due to now having PNA after just having L3-5 TLIF. Pt needing extensive 2 person assist for mobility needs. Initially while in the room pt was at 3L after movement dropped to 84% , turned up to 4L and increased to 88% and had patient practice with the spirometer. Nursing came and out pt up to 5L and at 88-92%. At this time pt will greatly benefit from skilled rehab. Goals Self-Feeding Goal Independent Grooming Goal Independent Dressing Goal Independent Toileting Goal Independent Bathing Goal Independent Toilet Transfer Goal Independent Shower Transfer Goal Independent Days to Meet Goals 20 Frequency of Treatment Frequency Of Treatment Once a Day Treatment Plan OT Treatment Plan ADL Training,Functional Mobility,Patient/Family Education,Discharge Planning Other Treatment Recommendations and [place] [facility] [place] Focus with FWW. Discharge Recommendations OT Discharge Recommendations SNF Rehab Transportation Needs at Discharge Wheelchair/Cabulance
--- NOTE | 2022-12-06 13:58 | P.PN_ITS ---
Subjective Subjective Interval history: 82 F s/p lumbar fusion, medicine consulted for acute respiratory failure yesterday. Had elevated troponin which downtrended on repeat. No chest pain or EKG consistent with acute HI. Echo with normal EF, volume status unclear Exam Vital Signs (past 8 hours): - 12/06/22 08:20 12/06/22 08:33 12/06/22 08:00 Temperature 98.1 F Pulse Rate 92 H 89 Respiratory Rate 17 Blood Pressure 137/56 L 144/57 H Pulse Oximetry 95 92 Oxygen Delivery Method Nasal Cannula Oxygen Flow Rate 3 3.5 12/06/22 12:00 Temperature 97.8 F Pulse Rate 99 H Respiratory Rate 17 Blood Pressure 133/45 L Pulse Oximetry 93 Oxygen Delivery Method Oxygen Flow Rate 3.5 Fraction of Inspired Oxygen 32 SaO2/FiO2 Ratio 290 Oxygen Delivery Method Nasal Cannula Oxygen Flow Rate 3.5 Narrative Exam Narrative: General:? Patient is well developed and well nourished, in no distress at this time. HEENT:? Normocephalic, atraumatic, extraocular muscles intact, oral pharynx is clear and mucous membranes are moist. Neck: supple and symmetric, trachea is midline, no cervical adenopathy. Negative for JVD Chest:? Normal AP diameter and contour without kyphoscoliosis, no tachypnea, equal chest rise bilaterally. Lungs:? diffuse rales, no wheezing. Cardio:?RRR no m/r/g. Abdomen: S NT ND. Extremities: No edema or joint effusions. No cyanosis or clubbing. Skin:? Pale,? Warm to touch,dry and intact without rashes, ulcerations or petechiae.? Neuro:? Alert and orientated x3,? sensation to touch intact in all extremities, no gross deficits noted of cranial nerves. Psych:? Patient has a well-kept appearance, appropriate affect, mental status attitude thought context and judgment are appropriate for age. Objective Labs 12/05/22 09:30 12/05/22 09:30 Labs: Laboratory Results - last 24 hr 12/05/22 12/05/22 12/05/22 09:30 15:31 18:11 Troponin I 0.250 H* Procalcitonin 0.17 Chlamy pneumoniae PCR Not detected Adenovirus (PCR) Not detected B. pertussis DNA (PCR) Not detected B.parapertussis DNA PCR Not detected Coronavirus OC43 (PCR) Not detected Coronavirus HKU1 (PCR) Not detected Coronavirus 229E (PCR) Not detected SARS-CoV-2 (PCR) Not detected Coronavirus NL63 (PCR) Not detected Human Metapneumovir PCR Not detected Influenza Type A (PCR) Not detected Influenza Type B (PCR) Not detected M. pneumoniae (PCR) Not detected Parainfluenza 1 (PCR) Not detected Parainfluenza 2 (PCR) Not detected Parainfluenza 3 (PCR) Not detected Parainfluenza 4 (PCR) Not detected RSV (PCR) Not detected Entero/Rhino (PCR) Not detected PFSH Medical History Arthritis Degenerative joint disease HTN (hypertension) Spinal stenosis Tobacco dependence Surgical History H/O arthroscopic knee surgery H/O knee surgery History of appendectomy History of breast biopsy History of cholecystectomy History of tonsillectomy Status post epidural steroid injection Social History household members: none Smoking Status: Former smoker alcohol intake: never Assessment & Plan Assessment & Plan narrative: 1. Acute respiratory failure with hypoxia, probably due to bacterial pneumonia - CTA negative for PE, but does show mucous plugging, consider edema as etiology as well. Developed fever yesterday started on ceftriaxone and azithromycin. - Trial slight diuresis with 20 mg IV lasix today to see if improvement in h ypoxia. - elevated bicarb on chemistries may indicate chronic lung disease as well. - RT eval and treat. Recommend chest PT. - Respiratory panel negiatve 2. Myocardial injury, possible acute diastolic heart failure - troponin 0.297 then downtrended, TTE hyperdynamic function, no obvious volume overload but will attempt slight diuresis noted above. - discussed with cardiology, medical management recommended without need for heparin infusion at this time. TTE with no concerning findings for acute HI. - outpatient stress testing recommended. - trial diuresis as noted above. 3. HTN - continue home medications for now 4. Lumbar spinal stenosis s/p lumbar fusion - management per primary team. 5. Acute anemia, presumed blood loss due to surgery - appears stable on repeat labs - continue to follow Code: DNR, surrogate is patient's son DVT: per primary team at this time. I have utilized all available immediate resources to obtain, update, or review the patient's current medications.. Will continue to follow. Quality VTE Deep Vein Thrombosis/Pulmonary Embolism Present on Admission: No
[2022-12-06] MEDS: FUROSEMIDE 20 MG/2 ML VIAL IV (14:17)
--- NOTE | 2022-12-06 14:34 | CM.DPC ---
DCP Continued: MANAGER STATISTICS reviewed EMR. Per provider, patient is not medically stable at this time and has pneumonia. Probably another day or two or until she's off oxygen. PT/OT continue to recommend SNF at this time. Julieth from [facility] reported auth has been approved. Can accept her whenever medically stable this week, will just need to update [employer]. MANAGER STATISTICS informed Julieth it'll be another day or two, she reported that shouldn't be a problem. MANAGER STATISTICS updated patient and family on auth approval. Patient reports being eager to leave the hospital and get start on rehab. DIL asked some questions regarding her medical state. MANAGER STATISTICS acted within area of competency and referred patient and family to provider for medical questions. Plan: d/c to [facility] when medically stable. CM team will need to coordinate transportation when appropriate. CM team will continue to follow closely. ROSAMARIA Hernandez
[2022-12-06] MEDS: MAGNESIUM HYDROXIDE 30 ML UDC PO (15:43)
[2022-12-06] MEDS: AZITHROMYCIN 500 MG in DEXTROSE 5% IN WATER 250 ML 250 MG IV (17:35)
[2022-12-06] MEDS: cefTRIAXone 1,000 MG in SODIUM CHLORIDE 0.9% 100 ML 200 MG IV (18:43)
[2022-12-06] MEDS: ACETAMINOPHEN 325 MG TABLET 650 MG PO (21:47)
[2022-12-06] MEDS: SENNOSIDES 8.6 MG TABLET 17.2 MG PO (21:47)
[2022-12-07 00:10] VITALS: BP 122/51; PULSE 77; RESP 18; TEMP 36.2; O2SAT 96
[2022-12-07] MEDS: OXYCODONE IR 5 MG TABLET PO ×2 (03:08→09:38)
[2022-12-07 05:29] VITALS: BP 121/45; PULSE 70; RESP 16; TEMP 35.8; O2SAT 93
[2022-12-07 05:52] LABS: Add Manual Diff / Slide Review NO; Basophils Absolute Auto 0 /uL (0-100); Basophils Percent Auto 0.5 % (0-2); Eosinophils Absolute Auto 0 /uL (0-450); Eosinophils Percent Auto 0.2 % (2-4); Hematocrit 30.9 % (36-46); Hemoglobin 10.6 g/dL (12.0-16.0); Lymphocytes Absolute Auto 2100 /uL (1100-4500); Lymphocytes Percent Auto 31.6 % (25-40); Mean Corpuscular HGB Conc 34.3 % (30-36); Mean Corpuscular Hemoglobin 31.9 PG (26-34); Mean Corpuscular Volume 93.1 fL (80-100); Monocytes Absolute Auto 700 /uL (0-900); Monocytes Percent Auto 11.3 % (3-14); Neutrophils Absolute Auto 3700 /uL (1500-7000); Neutrophils Percent Auto 56.4 % (50-75); Platelet Count 235 X10^3/uL (150-400); Red Blood Cell Count 3.32 X10^6/uL (4.0-5.2); Red Cell Distribution Width 13.3 % (11.6-14.8); White Blood Cell Count 6.5 X10^3/uL (4.5-11.0)
[2022-12-07 06:04] LABS: Alanine Aminotransferase 20 IU/L (<35); Albumin 2.9 g/dL (3.5-5.0); Albumin Globulin Ratio 1.2 (1.0-2.8); Alkaline Phosphatase 72 U/L (38-126); Aspartate Aminotransferase 23 IU/L (14-36); Bilirubin Total 0.5 mg/dL (0.2-1.3); Blood Urea Nitrogen 11 mg/dL (7-17); Calcium 7.9 mg/dL (8.4-10.2); Carbon Dioxide 34 mmol/L (22-32); Chloride 100 mmol/L (98-107); Estimated Glomerular Filt Rate > 60 mL/min (>60); Globulin 2.5 g/dL (1.7-4.1); Glucose 103 mg/dL (80-110); HEMOLYSIS < 15 (0-50); Magnesium 2.4 mg/dL (1.6-2.3); Potassium 4.1 mmol/L (3.4-5.1); Sodium 135 mmol/L (137-145); Total Protein 5.4 g/dL (6.3-8.2)
[2022-12-07 08:00] VITALS: BP 121/52; PULSE 69; RESP 18; TEMP 36.6; O2SAT 96
[2022-12-07] MEDS: NICOTINE 14 PATCH 14 MG TOP (09:35)
--- NOTE | 2022-12-07 09:35 | PM.PNPO.1 ---
Subjective Subjective Date Patient Seen: 12/07/22 Interval history: Patient is resting in bed comfortably this morning. She states that she is breathing much better today. She notes that her back pain has decreased and is well managed with medication. States that she still does get pain down the leg when she coughs. Denies numbness and tingling to the distal extremities. Denies fever, chills, chest pain, short shortness breath, nausea, vomiting. Exam Vital Signs (past 8 hours): - 12/07/22 05:29 12/07/22 08:00 Temperature 96.5 F L 97.9 F Pulse Rate 70 69 Respiratory Rate 16 18 Blood Pressure 121/45 L 121/52 L Pulse Oximetry 93 96 Oxygen Flow Rate 2 3 Fraction of Inspired Oxygen 32 SaO2/FiO2 Ratio 290 Oxygen Delivery Method Nasal Cannula Oxygen Flow Rate 3 Narrative Exam Narrative: Pleasant 82-year-old female. Awake, alert, and oriented. Lumbar dressing clean, dry, and intact. Strength and sensation intact to bilateral lower extremities. Bilateral calves soft, compressible, nontender with no palpable cords or masses. Objective Labs 12/07/22 05:25 12/07/22 05:25 Labs: Laboratory Results - last 24 hr 12/07/22 12/07/22 05:25 05:25 WBC 6.5 RBC 3.32 L Hgb 10.6 L Hct 30.9 L MCV 93.1 MCH 31.9 MCHC 34.3 RDW 13.3 Plt Count 235 Neut % (Auto) 56.4 Lymph % (Auto) 31.6 [place] % (Auto) 11.3 Eos % (Auto) 0.2 L Baso % (Auto) 0.5 Neut # (Auto) 3700 Lymph # (Auto) 2100 [place] # (Auto) 700 Eos # (Auto) 0 Baso # (Auto) 0 Sodium 135 L Potassium 4.1 Chloride 100 Carbon Dioxide 34 H BUN 11 Creatinine 0.61 Estimated GFR > 60 BUN/Creatinine Ratio 18.0 Glucose 103 Calcium 7.9 L Magnesium 2.4 H Total Bilirubin 0.5 AST 23 ALT 20 Alkaline Phosphatase 72 Total Protein 5.4 L Albumin 2.9 L Globulin 2.5 Albumin/Globulin Ratio 1.2 [facility] Medical History Arthritis Degenerative joint disease HTN (hypertension) Spinal stenosis Tobacco dependence Surgical History H/O arthroscopic knee surgery H/O knee surgery History of appendectomy History of breast biopsy History of cholecystectomy History of tonsillectomy Status post epidural steroid injection Social History household members: none Smoking Status: Former smoker alcohol intake: never Assessment & Plan Post-op Postoperative Procedures: Procedures Operation Date: 12/02/22 12:45 Actual Procedure Side Surgeon p L3-4, L4-5 TLIF w. posterior instrumentation -Robot Mariza Do MD Postoperative day: 5 Postoperative status narrative: Postoperative course has been complicated by hypoxic respiratory failure and possible acute heart failure with myocardial injury. Hospitalist is managing these issues. Patient is progressing well following spine surgery with decreasing pain and improvement with physical therapy. Postoperative plan narrative: Appreciate hospitalist following for cardiac and pulmonary workup and treatment. Currently receiving IV antibiotics for probably bacterial pneumonia. Patient to continue with inpatient physical therapy and pain management. Will follow patient's medical condition for pending discharge to SNF when medically stable. Quality VTE Deep Vein Thrombosis/Pulmonary Embolism Present on Admission: No
[2022-12-07] MEDS: ACETAMINOPHEN 325 MG TABLET 650 MG PO (09:37)
[2022-12-07 09:38] VITALS: BP 121/52
[2022-12-07] MEDS: lisinopriL 10 MG TABLET PO (09:38)
[2022-12-07] MEDS: PREGABALIN 75 MG CAPSULE PO (09:38)
[2022-12-07] MEDS: AMLODIPINE 5 MG TABLET PO (09:38)
[2022-12-07] MEDS: DOCUSATE 100 MG CAPSULE PO (09:38)
[2022-12-07] MEDS: GABAPENTIN 300 MG CAPSULE PO (09:38)
[2022-12-07] MEDS: FUROSEMIDE 20 MG/2 ML VIAL IV (09:39)
[2022-12-07] MEDS: ASPIRIN EC 325 MG TABLET PO (09:39)
[2022-12-07 09:58] VITALS: O2SAT 94
--- NOTE | 2022-12-07 10:18 | DI.RAD.S_ITS ---
PROCEDURE: XR CHEST 1V INDICATIONS: reassess mucus plugging TECHNIQUE: One view of the chest was acquired. COMPARISON: [facility], CT, CT ANGIO CHEST PE PROTOCOL, 12/05/2022, 11:11. [facility], CR, XR CHEST 1V, 12/05/2022, 8:37. FINDINGS: Surgical changes and devices: None. Lungs and pleura: Patient is rotated towards the left. Probable linear scarring or atelectasis at the right lung base. Which shaped opacity is seen at the left lung base in a similar distribution when compared to the CT from 12/05/2022. There is mild elevation of the left hemidiaphragm. No pleural effusions or pneumothorax. Mediastinum: Mediastinal contours appear normal. Heart size is normal. Bones and chest wall: No suspicious bony lesions. Overlying soft tissues appear unremarkable. IMPRESSION: Left basilar opacity with volume loss is consistent with atelectasis. The distribution is similar when compared to the CT from 12/05/2022. Approved by: Shawn Doe M.D. on 12/07/2022 at 12:08
--- NOTE | 2022-12-07 10:19 | PT.IPTN ---
Current Diagnoses Spondylolisthesis, lumbar region (12/02/22) Spinal stenosis, lumbar region with neurogenic claudication (12/02/22) Surgery Performed Operation Date: 12/02/22 12:45 Actual Procedures p L3-4, L4-5 TLIF w. posterior instrumentation -Robot - Mariza Do MD Physical Therapy Treatment Note M2 PT-IP Current Condition Start: 12/03/22 13:33 Freq: NEEDED Status: Active Protocol: Document 12/03/22 11:44 AB (Rec: 12/03/22 13:52 AB [id number]) Physical Therapy Current Condition Current Condition Evaluation Date 12/03/22 Treatment Diagnosis s/p L3-4, L4-5 TLIF; difficulty in walking Onset Date 12/02/22 M3 PT-IP Subjective Start: 12/03/22 13:33 Freq: NEEDED Status: Active Protocol: Document 12/07/22 10:54 TS (Rec: 12/07/22 11:37 TS [id number]) Subjective Physical Therapy Visit Type Type Treatment Note Visit Start Time 10:19 Visit Stop Time 10:52 Total Visit Minutes 33 Notes Vitals: BP 111/48, Spo2 94% on 3L at rest, 93% with mobility . Number of ECONOMIC FORECASTER Visits 1 Physical Therapy Visit Comments Patient Comments Pt found resting in bed, hospitalist discussing care, pt agreeable to PT. Therapy Pain Assessment Pain When Pain Assessed At Rest Pain Present Pain Present Pain Reported Location Back Description Aching,Spasm,With Movement Pain Behaviors Facial Grimacing,Guarding, Moaning,Restlessness,Wincing Pain Management Techniques Distraction,Modification of Treatment,Re-positioning, Timing of Activity with Medications M4 PT-IP Mobility and Gait Start: 12/03/22 13:33 Freq: NEEDED Status: Active Protocol: Document 12/07/22 10:54 TS (Rec: 12/07/22 11:37 TS [id number]) PT-Bed Mobility Assessment Rolling Type of Rolling Log Rolling Level of Assist Moderate Assistance Supine to Sit Supine to Sit Maximum Assistance,1 Person Assistance,Head of Bed Elevated Scooting Scooting to Edge of Bed Maximum Assistance PT-Transfer Assessment Sit to and From Stand Sit to and from Stand Maximum Assistance,1 Person Assistance,Use of Upper Extremities Equipment Transfer Assistive Device Gait Belt,Front Wheeled Walker Orthotic/Prosthetic Devices or Brace: No Transfers Transfer Destination Bedside Commode Transfer Technique Stand Step Pivot Transfer Ability Level of Assist Maximum Assistance,1 Person Assistance Comments Mobility Comments Pt found resting in bed, agreeable to PT. Pt recalled 3 /3 spinal precautions prior to mobility. Logroll ModA for shoulders and hip on L side, pt c/o pain and rolling back onto back. X-ray came to check on pt for ches scan. Pt performed logroll again to L side ModA with handrail assist . Supine to sit MaxA for uprighting trunk, pt limited by pain. She scooted to EOB with MaxA with transfer pad, provided cues for BUE support, Spo2 93% in sitting. Sit to stand MaxA with FWW, knees buckle and has decreased WBering on LLE due to pain. Pt performed stand step pivot to commode with MaxA, required max cueing for steps and FWW management, knees continue to buckle. Stand to sit ModA for slow eccentric control, provided cues for reaching for rails. Nursing was called to attend to pt on commode and for transfer back to bed. Gait Assessment Gait Gait Assistance Required: Maximum Assistance,1 Person Assist Distance (Feet) 2 Able to Maintain Weight Bearing Status Yes During Gait Assistive Devices Assistive Device Gait Belt,Front Wheeled Walker Orthotic/Prosthetic Devices or Brace: No Gait Deviations General Gait Pattern Antalgic,Ataxic,Decreased Stride Length,Decreased Feet Clearance,Narrow Based Gait Factors Limiting Gait Function Factors Limiting Gait Function Decreased Activity Tolerance, Decreased Strength,Difficulty Following Directions, Incoordination,Limited Range of Motion,Pain,Poor Balance, Poor Safety Awareness, Respiratory Distress Comments Gait Comments Stand step pivot transfer. See mobility comments. PT-Balance Assessment Sitting Balance and Reactions Static Sitting Balance Ability Fair Dynamic Sitting Balance Ability Fair Standing Balance and Reactions Static Standing Balance Ability Poor Dynamic Standing Balance Ability Poor M5 PT-IP Objective Assessments Start: 12/03/22 13:33 Freq: NEEDED Status: Active Protocol: Document 12/03/22 11:44 AB (Rec: 12/03/22 13:52 AB [id number]) Orientation Orientation/Cognition Level of Alertness Alert Orientation Name,Place,Situation Language Function Ability No Deficits Noted Safety Awareness Decreased Safety Awareness Memory Description Short Term Impaired Comments with confusion Gross Range of Motion Lower Extremity ROM Assessment Within Functional Limits Strength Lower Extremity Strength Assessment Bilaterally Impaired Comments Strength Comments RLE: 4-/5 LLE: 3+/5 Sensation Assessment Sensation Gross Sensation WNL Muscle Tone Muscle Tone WNL Yes M6 PT-IP Treatment Start: 12/03/22 13:33 Freq: NEEDED Status: Active Protocol: Document 12/07/22 10:54 TS (Rec: 12/07/22 11:37 TS [id number]) Physical Therapy Treatment Education Education Provided Precautions,Weight Bearing Status,Post-Op Packet,Safety M7 PT-IP Assessment and Plan Start: 12/03/22 13:33 Freq: NEEDED Status: Active Protocol: Document 12/07/22 10:54 TS (Rec: 12/07/22 11:37 TS [id number]) PT Summary Assessment and Plan Potential Rehabilitation Potential Fair Summary Impairments Pain,ROM,Strength,Balance, Coordination,Sensation,Tone, Cognition,Bed Mobility, Transfers,Gait,Activity Tolerance Progress Towards Goals Slow Progress due to Pain,Slow Progress due to Medical Issues Assessment Summary Pt continues to make slow progress with her mobility. She continues to be ModA for logroll and requries max cueing. She is MaxA for sit to stand with FWW, has poor static standing balance with buckling of B knees and decreased wbering on LLE. She progressed to a stand step pivot transfer to commode MaxA for buckling of knees and requires max cueing for sequencing. Spo2 was 94% at rest on 3L and 93% during bed mobility, pt denied SOB. PT is recommending SNF to progress functional mobility and activity tolerance. Goals Bed Mobility Goal Minimal Assistance Transfer Goal Minimal Assistance,Front Wheeled Walker Gait Goal Minimal Assistance,Front Wheel Walker Gait Distance 50 Other Goals improve bed mobility, transfers, ambulation using FWW SBA 150 ft 2 platform steps using FWW CGA Days to Meet Goals 10 Frequency of Treatment Frequency Of Treatment Twice a Day Treatment Plan Physical Therapy Treatment Plan Bed Mobility Training,Transfer Training,Gait Training, Therapeutic Exercise,Balance Retraining,Post Op Education, Discharge Planning,Hot or Cold Pack,Neuromuscular Re-ed, Coordination Retraining,Manual Therapy Precautions Lumbar Precautions Log Roll,No Twisting,Limit Bending,Lifting Restriction of 10 lbs,Gait Belt above Incisional Area Recommendations To Nursing Amount of Assist Needed 2 Person Assist Discharge Recommendations PT Discharge Recommendations SNF Rehab Transportation Needs at Discharge Wheelchair/Cabulance
--- NOTE | 2022-12-07 11:30 | PM.PN.1 ---
Subjective Subjective Interval history: 82 yo female who is post-op from lumbar fusion. She developed acute hypoxic respiratory failure on 12/06/22. CT scan was done which revealed mucus plugging w/some collapse of the LLL and RLL. She was requiring 5lpm. Today she is down to 2-3 lpm. Pt notes she is not doing any significant coughing. No SOB. Hopes to be able to go to rehab today. Notes she had been constipated but took laxatives and has been cramping today. Exam Vital Signs (past 8 hours): Fraction of Inspired Oxygen 32 SaO2/FiO2 Ratio 290 Oxygen Delivery Method Nasal Cannula Oxygen Flow Rate 3 Const General: cooperative, well developed and No acute distress Chest Chest: normal inspection of the chest Resp Other: Coarse bilaterally, but o/w CTAB Cardio Other: RRR, no M/R/G GI Other: soft, ND, mild RLQ pain, BTx4 Skin Other: warm, dry, no rash Objective Labs 12/07/22 05:25 12/07/22 05:25 [facility] Medical History Arthritis Degenerative joint disease HTN (hypertension) Spinal stenosis Tobacco dependence Surgical History H/O arthroscopic knee surgery H/O knee surgery History of appendectomy History of breast biopsy History of cholecystectomy History of tonsillectomy Status post epidural steroid injection Social History household members: none Smoking Status: Former smoker alcohol intake: never Assessment & Plan Assessment & Plan narrative: 1. Acute respiratory failure with hypoxia, Likely d/t lung collapse/atx rather than acute infection. However, she remains on empiric treatment for pneumonia. O2 need down. Will add flutter valve. F/u CXR done today showed left basilar opacity/volume loss c/w atelectasis. Will need f/u CT in 2-3 mos to ensure findings have resolved. 2. Myocardial injury, possible acute diastolic heart failure ?No significant sxs/signs of CHF. Will d/c diuresis. 3. HTN ?VSS 4. Lumbar spinal stenosis s/p lumbar fusion ?DC to SNF today per ortho service. 5. Acute anemia, presumed blood loss due to surgery Hgb stable. Pt medically appropriate for discharge today. Quality VTE Deep Vein Thrombosis/Pulmonary Embolism Present on Admission: No
--- NOTE | 2022-12-07 12:29 | CM.DPC ---
Addendum entered by ROSAMARIA Hernandez 12/07/22 13:24: EMPLOYMENT PROGRAMS ANALYST faxed updated PT/OT notes to [facility] per Julieth request. JACOB Addendum entered by ROSAMARIA Hernandez 12/07/22 13:02: EMPLOYMENT PROGRAMS ANALYST faxed d/c summary to [facility]. Julieth requested specific diet instructions in d/c summary. EMPLOYMENT PROGRAMS ANALYST updated nursing staff that from ortho PA, recommended cardiac diet. Nurse said she would include that in her report. JACOB Original Note: DCP Continued: EMPLOYMENT PROGRAMS ANALYST reviewed EMR. Per provider, patient is medically cleared to d/c today. EMPLOYMENT PROGRAMS ANALYST informed Julieth at [facility] patient could d/c today. Transport time set up for 1300. EMPLOYMENT PROGRAMS ANALYST updated nursing staff, hospitalist, and ortho PA. EMPLOYMENT PROGRAMS ANALYST completed PASRR and gave to CM Assistant Harvey. EMPLOYMENT PROGRAMS ANALYST updated patient, who is eager to d/c to [facility]. EMPLOYMENT PROGRAMS ANALYST called CINTHYA Colby to inform her of patient d/c timeline. Earnestine appreciative of the update and asked for [facility] phone number. EMPLOYMENT PROGRAMS ANALYST provided number to main line. Hospitalist printed and signed med list. EMPLOYMENT PROGRAMS ANALYST gave list to CM Assistant Harvey. GRACIELA Harvey faxed d/c information, PASRR, order, clinicals, and copy of meds to [facility]. d/c summary not complete at this time. Yue reported she plans to finish d/c summary now. Plan: patient will d/c to [facility] today at 1300 transport with facility vehicle. CM team will continue to follow closely. ROSAMARIA Hernandez
--- NOTE | 2022-12-07 12:36 | P.DS_ITS ---
History of Present Illness History of Present Illness Chief complaint: Lumbar TLIF w/posterior instrumentation Narrative: History unchanged from note this morning. Discharge Providers Provider Date of admission: 12/02/22 10:05 Discharge Date: 12/07/22 Primary care physician: Kierra Joseph PA-C Consults: 12/02/22 18:30 Consult to Occupational Therapy Evaluate & Treat Comment: Physician Instructions: Evaluate and treat Consult to Physical Therapy Evaluate & Treat Comment: Physician Instructions: Evaluate and Treat 12/05/22 09:22 Consult to Hospitalist Service Routine Comment: Consulting Provider: Caesar Mcdonnell Reason for consultation: Difficulty breathing Has provider been notified: Yes Discharge provider: Nae Turner PA-C Summary Hospital Course Discharge Diagnosis: s/p TLIF, hypoxic respiratory failure Hospital Course: Operative Date/Time/Diagnoses Date of procedure: 12/02/22 Time of procedure: 13:45 Pre-op diagnosis: 1. L3-4, L4-5 spinal stenosis with neurogenic claudication 2. L3-4, L4-5 spondylosis with radiculopathy 3. Lumbar scoliosis Post-op diagnosis: same Procedure & Clinicians Procedure: 1. L3-4, L4-5 Postero-lateral and posterior interbody fusion 2. L3-4, L4-5 interbody cage placement. 3. L3-4, L4-5 decompressive laminectomy with bilateral facetecomies 4. L3-4, L4-5 Posterior segmental instrumentation 5. Angel Fire of bone marrow from iliac crest 6. Utilization of microsurgical technique and operating microscope 7. Utilization of robotic assisted navigation Same procedure as scheduled: Yes Indications: Patient has been having chronic back pain and worsening lumbar radiculopathy and symptoms of neurogenic claudication. Patient failed multiple conservative management with worsening pain weakness and numbness in her lower extremity.? Patient has been having difficulty performing activity of daily living.? After discussing risks benefits of treatment options, patient elected proceed with surgery. Surgeon: Mariza Do Loss Prevention Coordinator: Ady Palmer Click Yes if Unassisted: No Anesthesia Type: General Operative Notes Closure Type: primary Specimen(s): none sent Prosthetic devices, grafts, tissues, transplants, or devices: Globus CREO MIS screws, Rise cages Applied: catheter Status at Discharge Cognitive/behavioral status at discharge: oriented Functional status at discharge: uses cane/walker Overall status at discharge: patient is progressing back to baseline Exam Vital Signs (past 8 hours): - 12/07/22 05:29 12/07/22 08:00 12/07/22 09:38 Temperature 96.5 F L 97.9 F Pulse Rate 70 69 Respiratory Rate 16 18 Blood Pressure 121/45 L 121/52 L 121/52 L Pulse Oximetry 93 96 Oxygen Delivery Method Oxygen Flow Rate 2 3 12/07/22 09:58 Temperature Pulse Rate Respiratory Rate Blood Pressure Pulse Oximetry 94 Oxygen Delivery Method Nasal Cannula Oxygen Flow Rate 3 Fraction of Inspired Oxygen 32 SaO2/FiO2 Ratio 290 Oxygen Delivery Method Nasal Cannula Oxygen Flow Rate 3 Narrative Exam Narrative: Physical exam unchanged from prior note this morning Objective Labs 12/07/22 05:25 12/07/22 05:25 Labs: Laboratory Results - last 24 hr 12/07/22 12/07/22 05:25 05:25 WBC 6.5 RBC 3.32 L Hgb 10.6 L Hct 30.9 L MCV 93.1 MCH 31.9 MCHC 34.3 RDW 13.3 Plt Count 235 Neut % (Auto) 56.4 Lymph % (Auto) 31.6 [place] % (Auto) 11.3 Eos % (Auto) 0.2 L Baso % (Auto) 0.5 Neut # (Auto) 3700 Lymph # (Auto) 2100 [place] # (Auto) 700 Eos # (Auto) 0 Baso # (Auto) 0 Sodium 135 L Potassium 4.1 Chloride 100 Carbon Dioxide 34 H BUN 11 Creatinine 0.61 Estimated GFR > 60 BUN/Creatinine Ratio 18.0 Glucose 103 Calcium 7.9 L Magnesium 2.4 H Total Bilirubin 0.5 AST 23 ALT 20 Alkaline Phosphatase 72 Total Protein 5.4 L Albumin 2.9 L Globulin 2.5 Albumin/Globulin Ratio 1.2 [facility] Medical History Arthritis Degenerative joint disease HTN (hypertension) Spinal stenosis Tobacco dependence Surgical History H/O arthroscopic knee surgery H/O knee surgery History of appendectomy History of breast biopsy History of cholecystectomy History of tonsillectomy Status post epidural steroid injection Social History household members: none Smoking Status: Former smoker alcohol intake: never Discharge Assessment & Plan Assessment and Plan Assessment: Postoperative course has been complicated by hypoxic respiratory failure and possible acute heart failure with myocardial injury.? Hospitalist is managing t hese issues.? Patient is progressing well following spine surgery with decreasing pain and improvement with physical therapy. Plan of Treatment: Appreciate hospitalist following for cardiac and pulmonary workup and treatment. Currently receiving IV antibiotics for probably bacterial pneumonia. Patient to continue with inpatient physical therapy and pain management. Will follow patient's medical condition for pending discharge to SNF when medically stable. Discharge Plan Discharge Plan Patient Disposition: SNF Transfer to: [facility] Under care of provider: Nubia IBRAHIM Provider Discharge Comment: Wean O2 as able to keep sats >92% Continue to use flutter valve q4 hrs Continue antibiotics until gone You will need a follow-up chest CT in the next couple of months to ensure the mucus plugging has fully resolved Discharge orders & Medications Prescriptions: New oxycodone-acetaminophen [Percocet] 5-325 mg tablet 2 tab PO Q4-6H PRN (Reason: pain) Qty: 60 0RF hydroxyzine pamoate [Vistaril] 25 mg capsule 25 mg PO TID-QID PRN (Reason: spasms) Qty: 60 0RF azithromycin [Zithromax Z-Herson] 250 mg Tablet 500 mg PO DAILY@1800 Qty: 2 0RF aspirin 325 mg Tablet,Delayed Release (Dr/Ec) 325 mg PO DAILY Qty: 30 0RF docusate sodium 100 mg Capsule 100 mg PO BID Qty: 30 0RF cefdinir 300 mg Capsule 300 mg PO BID Qty: 10 0RF sennosides [senna] 8.6 mg Tablet 17.2 mg PO BEDTIME Qty: 14 0RF Continued amlodipine 5 mg Tablet 5 mg PO DAILY lisinopril 10 mg Tablet 10 mg PO DAILY gabapentin 300 mg Capsule 300 mg PO TID pregabalin 75 mg Capsule 75 mg PO BID Follow up/Referrals: Kierra Joseph PA-C [Primary Care Provider] - Mariza Do MD [Physician] - As previously scheduled Discharge Health Status Multidrug resistant organism: No MDRO Diet/Activity/Treatments Diet: Diet as Tolerated and Regular Liquid consistency: Normal/Thin Food texture: Regular Activity: No deep bending, twisting, or lifting over 10 pounds Cold/Heat Therapy: Heat to back as needed Catheter comment: DC villavicencio Oxygen: 2-3lpm continuous, wean as able to keep sats >92% Skin/Wound/Dressing Care Report to your healthcare provider any signs of infection, such as:: chills, fever, night sweats, increased pain, unusual drainage and unusual redness Dressing: Keep dressing clean and dry Special Rehabilitation Services Reason for rehabilitation: Post-operative therapy Rehab type: Physical therapy and Occupational therapy Visit Report/Discharge Packet Instructions: DI for Prescription Opioid Use, DI for Transforaminal Lumbar Interbody Fusion Stand Alone Forms: Patient Portal/API, Surgery Discharge Discharge Data Primary Care Provider: Kierra Joseph VTE Deep Vein Thrombosis/Pulmonary Embolism Present on Admission: No
--- NOTE | 2022-12-07 13:52 | PC.NURSE ---
Report called to Edith SHEPHERD at [facility] and all questions answered. Pt packed up and ready to go and [facility] transport here to pick Pt up. Packet with transport and prescriptions within packet.
--- NOTE | 2022-12-07 13:59 | PC.NURSE ---
Pt out via w/c by Transfer personnel with all belongings.
== END 2022-12-07 14:00 | DRG 453 ==
PROVIDERS: Internal Medicine; Admitting Provider Orthopaedic Surgery Orthopaedic Surgery of the Spine; PCP Physician Assistant; Referring Provider Physician Assistant; Visit Provider Orthopaedic Surgery Orthopaedic Surgery of the Spine
PROC: 0SG10AJ Fusion of 2 or more Lumbar Vertebral Joints with Interbody Fusion Device, Posterior Approach, Anterior Column, Open Approach (ICD-10-PCS; principal; 2022-12-02 12:45)
DX: M48.062 Spinal stenosis, lumbar region with neurogenic claudication (principal); I50.31 Acute diastolic (congestive) heart failure; J18.9 Pneumonia, unspecified organism; J96.01 Acute respiratory failure with hypoxia; I5A Non-ischemic myocardial injury (non-traumatic); M47.816 Spondylosis without myelopathy or radiculopathy, lumbar region; M41.9 Scoliosis, unspecified; M43.16 Spondylolisthesis, lumbar region; I11.0 Hypertensive heart disease with heart failure; Z66 Do not resuscitate; Z87.891 Personal history of nicotine dependence
CPT/HCPCS: 36415; 71045; 71275; 72100; 76000; 80053; 83735; 83880; 84145; 84484; 85014; 85018; 85025; 87633; 93005; 93010; 93306; 94640; 94760; 94762; 97116; 97162; 97166; 97530; 97535; C1713; C9290; J0171; J0330; J0690; J0696; J1100; J1170; J1940; J2060; J2405; J2704; J3010; J3410; Q9967